=== PATIENT | female | born 2000 | race Caucasian/White ===

== ENCOUNTER 2022-06-22 14:25 | Observation (INO) | payer OTHER, SELFPAY ==
--- NOTE | 2022-06-19 14:07 | EKG12_ITS ---
Test Reason : PREOP Blood Pressure : / mmHG Vent. Rate : 088 BPM Atrial Rate : 088 BPM P-R Int : 140 ms QRS Dur : 078 ms QT Int : 372 ms P-R-T Axes : 028 046 028 degrees QTc Int : 450 ms Normal sinus rhythm Normal ECG Confirmed by IVETT DAY, REBECA ([id number]), editorial manager XIOMARA CNAO ([id number]) on 06/20/2022 1:16:45 PM Referred By: Jomar Duff Confirmed By:REBECA ROOT MD
[2022-06-19 15:40] LABS: Hematocrit 41.7 % (37-47); Hemoglobin 14.3 g/dL (12.0-15.0); Mean Corp Hgb Conc 34.3 g/dL (32-36); Mean Corpuscular Volume 87.4 fL (81-99); Mean Platelet Vol. 10.6 fl (6.2-12.0); Platelet Count 357 K/mm3 (150-450); RBC Distribution Width CV 12.6 % (11.6-14.6); RBC Distribution Width SD 40.1 fl (35.1-43.9); Red Blood Count 4.77 M/mm3 (4.2-5.4); White Blood Count 8.1 K/mm3 (4.4-11.0)
[2022-06-19 16:24] LABS: Anion Gap 9 (5-15); BUN 12 mg/dL (7-18); BUN/Creat Ratio 16.6 RATIO (10-20); Calcium,Total 9.3 mg/dL (8.5-10.1); Chloride 106 mmol/L (98-107); Creatinine, Serum 0.72 mg/dL (0.55-1.02); EST Glomerular Filtration Rate 109 mL/min (>60); Est Glom Filt Rate - Afr Amer 132 mL/min (>60); Glucose 91 mg/dL (74-106); Potassium 4.6 mmol/L (3.5-5.1); Sodium Level 141 mmol/L (136-145)
[2022-06-22] VITALS (11 sets, daily range): BP systolic 114–153; BP diastolic 54–80; PULSE 74–91; RESP 16–24; TEMP 36.3–36.9; O2SAT 94–100; BMI 43.6
--- NOTE | 2022-06-22 | GALL_PTH ---
PATIENT: GLENDY MYRICK LOC: MS3 U#:[id number] AGE/SX: 22/F ROOM: MS317 RE06/22/[address]: Dr. Jomar Duff MD : 2000 BED: 1 DIS: 06/23/2022 SPEC #: [id number] RECD: 06/22/22 14:36 STATUS: SUZAN BENITEZJonna #: [id number] SOUMYA: 06/22/22 00:[address]: Jomar Duff DEPT: SURGICAL PATHOLOGY RECD BY: Sukhwinder Nathan ENTERED: 06/23/22 10:58 SP TYPE: BRIANA THAPA DR: Marcia Perry, LOU Tissues: Gallbladder, NOS Procedures: Surgery Specimen Level III HEADER OPERATION: Laparoscopic cholecystectomy with IOC PRE-OP DIAGNOSIS: Cholelithiasis with chronic cholecystitis TISSUE SUBMITTED: Gallbladder MICROSCOPIC DIAGNOSIS Gallbladder, cholecystectomy: Chronic cholecystitis and cholelithiasis. SJ:phani 06/26/2022 MICROSCOPIC DESCRIPTION Slides are reviewed. GROSS DESCRIPTION Received is one container labeled with the patient's name and designated gallbladder. The specimen consists of a gallbladder measuring 6 x 3 x 3 cm. The external surface is smooth and glistening. Focally, it is granular, hemorrhagic and contains cautery artifact. The lumen of the gallbladder contains yellow-green mucoid bile and multiple chalky, yellow calculi ranging in size from 0.2 to 0.6 cm in greatest dimension. The mucosa is bile-stained and without any mass lesions. The gallbladder wall averages 0.2 cm in thickness and is free of mass lesions. Application Technical Designer sections of the gallbladder and the cystic duct at margin of resection are submitted in one cassette. / AM:phani 06/23/2022 TC:3 CPT: 35809
--- NOTE | 2022-06-22 10:47 | HP.PCM_ITS ---
History and Physical Date of Admission: 06/22/22 Visit Reasons:?GALLBLADDER Chief Complaint: gallbladder Is patient in pain?: Yes Allergies No Known Allergies Allergy (Verified 06/02/22 13:09) Medications ondansetron 4 mg disintegrating tablet 4 mg PO Q8H PRN PRN Nausea #10 tabs 05/29/15 [Rx Confirmed 06/02/22] cholecalciferol (vitamin D3) 125 mcg (5,000 unit) capsule 125 mcg PO DAILY 06/02/22 [History Confirmed 06/02/22] drospirenone 3 mg-ethinyl estradiol 0.02 mg tablet 1 tab PO DAILY 06/02/22 [History Confirmed 06/02/22] fluoxetine 10 mg capsule 10 mg PO DAILY 06/02/22 [History Confirmed 06/02/22] omeprazole 20 mg capsule,delayed release 20 mg PO DAILY 06/02/22 [History Confirmed 06/02/22] PFSH Family History?(Updated 06/02/22 @ 13:07 by Gladys Do) Mother Diabetes Thyroid disorderFather Diabetes Skin cancerGrandmother Heart disease Kidney disease Colon cancerGrandfather Heart disease Social History?(Updated 06/02/22 @ 13:07 by Gladys Do) Smoking Status:? Never smoker alcohol intake:? never substance use type:? does not use HPI HPI HPI: 22-year-old female.She is referred by Marcia Perry CNP for surgical consultation regarding nausea and vomiting.? At the [facility] she had a gallbladder ultrasound on May 09, 2022 showing small mobile stones within the gallbladder.? The common bile duct was felt to be normal.? She had a hepatobiliary scan performed on May 12, 2022.? There was nonvisualization of the gallbladder for up to 2 hours. Her symptoms over the past 2 years has been problems with right upper quadrant pain radiating to her right flank nausea vomiting occasionally diarrhea occasionally constipation.? She denies bright red blood per rectum or melena.? She denies any previous abdominal surgical procedures.? Today she is not currently in pain.? She states that fatty foods will aggravate her condition. ROS General General: No weight change, appetite, fatigue, colon cancer, breast cancer or weakness HEENT HEENT: No difficulty swallowing, eye injury, eye surgery, swollen glands or hoarseness Endo Endocrine: No thyroid disease, diabetes mellitus, thyroid cancer, Hair loss, heat intolerance or cold intolerance Skin Skin: No rash or changing moles Breast Breast: No left breast lump, right breast lump, nipple discharge, breast pain, abnormal mammogram, abnormal US or breast enlargement Musc Musculoskeletal: Yes back problems; No arthritis, rheumatoid arthritis, gout or joint pain Cardio Cardiovascular: No murmur, pacemaker, heart disease, atrial fibrillation, high blood pressure, heart attack, heart stent, palpitations, shortness of breat with exertion or chest pain Psych Psychiatric: Yes depression and anxiety; No hearing voices Resp Respiratory: Yes shortness of breath, No sleep apnea, No cough, No COPD, No asthma, No emphysema and No wheezing Gastro Gastrointestinal: Yes abdominal pain, Yes nausea or vomiting, Yes diarrhea, Yes constipation, No blood in stool, Yes acid reflux, No hemorrhoids, No ulcers, Yes gallbladder problem and No black,tarry stools Porfirio Hematologic: No blood thinners, No blood disorders, No bleeding, No anemia and No blood clots Neuro Neurologic: No system reviewed and no additional complaints, except as documented, No as per HPI, No abnormal gait, No abnormal hearing, No abnormal movements, No abnormal speech, No behavioral changes, No burning sensations, No confusion, No convulsions, No disequilibrium, No dizziness, No localized weakness, No frequent falls, No headache(s), No lack of coordination, No loss of vision, No memory loss, No numbness, No other visual disturbances, No radicular pain, No restless legs, No sensory deficit, No syncope, No tingling, No tremor(s), No weakness and No other Exam Const General: cooperative, comfortable and no acute distress Nutritional Appearance: obese morbidly obese Orientation: alert, awake and oriented x3 [facility] Head: normal to inspection Eyes General: appearance normal, both eyes and all related structures Neck Neck: normal visual inspection Chest Chest palpation & inspection: normal inspection of the chest Resp Effort & Inspection: normal respiratory effort Auscultation: clear to auscultation bilaterally Cardio Rate: regular rate Rhythm: regular rhythm GI Palpation: soft and no hepatosplenomegaly Auscultation: normal bowel sounds Skin General: no rashes or lesions noted Neuro General: patient alert, patient awake and patient oriented x3 Psych Appearance: grossly normal Assessment and Plan Assessment and Plan (1) Cholelithiasis with chronic cholecystitis: ?Status:?Chronic ?Plan: Findings are consistent with biliary colic, chronic cholecystitis cholelithiasis.? I have cautioned her that possibly all of her symptoms may not rose but I think that there is very solid evidence that she has malfunctioning gallbladder.? We discussed a laparoscopic approach we discussed potential conversion to open.? She concurs and is aware. I recommended the patient a laparoscopic cholecystectomy with selective cholangiography and I discussed the technique, benefit, risk, alternatives.? She has had an opportunity to ask and have questions answered.? We will schedule procedure at her discretion. I appreciate the opportunity of assisting with her surgical care. Copy: Marcia Perry, LEW Duff M.D., F.A.C.S. I have examined the patient and the H&P has been reviewed. There are no clinical changes since date of exam. Jomar Duff M.D., F.A.C.S.
--- NOTE | 2022-06-22 10:47 | EX.PCM.DISCH ---
Discharge Instructions Procedure General Surgery Diet Discharge Diet: Light diet - advance as tolerated (if you have questions about your diet instructions, please talk to you doctor.) Activity Discharge Activity: May Not Drive (for 3-5 days or while taking narcotic pain medicine.) May shower in (days): 1 (May shower on Sunday if your dressings are clean and dry. If ongoing drainage then delay showers until the dressings are dry) Lifting Restrictions: 10 pounds Dressing / Incision Call your doctor if your incision/area has: Continuous Slow Oozing, Sudden Increased Bleeding, Increased Pain/ Swelling, Increased Redness and Foul Smelling Discharge Call your doctor if you observe: Fever of 101 or Higher Suture Line Care: Avoid Pulling/Pushing and Avoid Pinching/Bending Additional Dressing/Incision Instructions:: Change or remove dressing in 4 days. Leave steri-strips in place for 1 week. Follow Up Care Please Follow Up With: Jomar Duff MD When: Call [phone] to make an appointment to be seen in about 10 days. Test Results: Test results from this visit will be discussed in further detail at your follow-up appointment, if applicable. Discharge Plan Admission Admit Date/Time: 06/22/22 14:25 Primary Reason for Your Visit: Chronic cholecystitis cholelithiasis Attending Provider: Jomar Duff Primary Care Provider: Marcia Perry NP Discharge Orders/Prescriptions Prescriptions: New hydrocodone-acetaminophen 5-325 mg tablet 1 tab PO Q6H PRN (Reason: pain) 2 Days Qty: 8 0RF Continued omeprazole 20 mg capsule,delayed release(DR/EC) 20 mg PO DAILY fluoxetine 10 mg capsule 10 mg PO DAILY cholecalciferol (vitamin D3) 125 mcg (5,000 unit) capsule 125 mcg PO DAILY drospirenone-ethinyl estradiol 3-0.02 mg tablet 1 tab PO DAILY loratadine [Claritin] 10 mg Tablet 10 mg PO DAILY Referrals / Follow Up: Marcia Perry NP, DECORATING AND ASSEMBLY SUPERVISOR-C [Primary Care Provider] -
[2022-06-22 11:02] LABS: Internal QC Validated? YES +Cl - CLEAR BKGD; Pregnancy, Urine Negative Negative
[2022-06-22] MEDS: Lactated Ringers 1,000 ML 15 ML IV ×2 (11:21→13:30)
--- NOTE | 2022-06-22 11:30 | RAD_ITS ---
STUDY: INTRAOPERATIVE cholangiogram. REASON FOR EXAM: Female, 22 years old. Laparoscopic cholecystectomy. FLUOROSCOPY TIME (if supplied): ( 126 seconds ) minutes/seconds. A cine loop of 73 images was submitted. TECHNIQUE: Intraoperative cholangiogram was performed by the surgeon. Imaging was provided. COMPARISON: None. FINDINGS: There is extravasation of contrast at the operative site. The common bile duct is not dilated. There is free flow of contrast into the duodenum. RAD/Cholangiogram/ O R,Initial IMPRESSION: Normal appearance of the common bile duct. Electronically Signed: Dennis Bansal MD at 12:36 EDT ,
[2022-06-22] MEDS: Cefazolin 2 GM in 0.9% Normal Saline 100 ML IV (12:14)
--- NOTE | 2022-06-22 14:19 | PCM.OPRPT ---
Report of Operation Date of Procedure: 06/22/22 Pre-Operative Diagnosis: Chronic cholecystitis cholelithiasis Post-Operative Diagnosis: Chronic cholecystitis cholelithiasis hydrops of the gallbladder and impaction of the cystic duct Surgery/Procedure Performed:: Laparoscopic cholecystectomy with cholangiograms Description of Surgical Findings:: Timeout and informed consent was obtained. 22-year-old female was taken to the operating placed on the table underwent general endotracheal intubation esthesia Ancef 2 g were given intravenously the abdomen sterilely prepped and draped 0.25% Marcaine was used as a local anesthetic throughout the procedure a total of 30 cc was used. Skin sites were. Excised. A vertical infraumbilical incision was created holding sutures of 0 Vicryl placed varies needle inserted saline drop test performed the abdomen was insufflated with CO2 to a pressure of 12 mmHg pressure no evidence of any trocar injuries after a 10 mm trocar inserted and 10 mm laparoscope inserted. Under direct visualization 5 mm trocar inserted in the epigastric 1 in the mid abdomen and 1 in the right upper quadrant. Inspection revealed significant diffuse fatty change of the liver with a very yellowish color. The gallbladder was grasped with the infundibular area was tediously dissected free. It is of note that there was inflammation completely surrounding the cystic duct and this dissection was extraordinarily difficult in light of the difficulty in helping the liver remain elevated due to the fatty change dissected further up on the infundibular area tediously is used Hem-o-riya clips for hemostasis finally dissected around the infundibular area that worked my way more distally was able to identify the cystic artery and cystic duct. Having done that I secured the cystic artery with Hem-o-riya clips prior to transecting it. Placed a Hemoclip on the cystic duct and an incision in the cystic duct and milked the cystic duct backwards and got debris and stone material did this multiple times. Then used a cholangiogram catheter through an Angiocath and irrigated the cystic duct backwards. It is of note that there was no green bile identified throughout the procedure. Continue to milk it back until I could position the cholangiogram catheter in the cystic duct secured that with a Hem-o-riya clip and then fluoroscopically obtain cholangiograms. There was leakage back from the Hem-o-riya clip but I was able to see flow distally initially not into the small bowel but then into the small bowel. Patient received a milligram of glucagon. Did further imaging and felt that I was able to identify the proper hepatic duct and the bifurcation of the intrahepatic ducts as well as flow into the duodenum. Cholangiogram catheter was removed 3 Hem-o-riya clips were placed on the cystic duct stump prior to transecting it. The cystic duct stump noted to be edematous. Then dissected free the gallbladder from the liver bed complete hemostasis was intact. The gallbladder retrieval bag the right upper quadrant was irrigated free and aspirated free of excess fluid. Just because of the technical challenges of the operation and the concern that she might of developed some degree through the common duct and pancreatitis I elected to place a 15 round JOEL drain and hold the patient in the hospital overnight. JOEL drain was shorten length length to the subhepatic space and exited through the right upper quadrant secured there with a 3-0 nylon. The gallbladder is now exited through the umbilical port site. The remaining trochars were allowed to deflate under an antiviral valve. The abdomen deflate. The fascia at the umbilicus approximated with 2-0 Vicryl [id number] suture. Skin edges proximal interrupted 4 Monocryl subdermal stitches. Steri-Strips Telfa OpSite dressings applied. Sponge and instrument and needle counts were reported to the surgeon to be correct. Specimen gallbladder. Drains 15 round JOEL. Blood loss minimal. The patient was taken to the recovery room in satisfactory addition without apparent complication. Jomar Duff M.D., F.A.C.S. Surgeon: Jomar Duff Type of Anesthesia: General and Local Anesthesiologist: Pablo Galarza
[2022-06-22] MEDS: Bupivacaine 0.25% 30 ML Vial (14:20)
[2022-06-22] MEDS: Ondansetron 4 MG/2 ML Vial IV (17:27)
[2022-06-22] MEDS: HYDROcodone Bitartrate/Apap 5/325 Tablet PO (18:06)
[2022-06-23] MEDS: HYDROcodone Bitartrate/Apap 5/325 Tablet PO ×2 (02:52→09:19)
[2022-06-23 04:15] VITALS: BP 110/64; BP 118/70; PULSE 80; RESP 16; TEMP 36.7; O2SAT 96
--- NOTE | 2022-06-23 04:17 | NURSING ---
Pt OOB at 1999 to ambulate in hallway. Tolerated well. Unable to void at this time. Pt then assisted to chair and chewing gum was provided. At 2229 pt up to ambulate in hallway for second time. Tolerated well. Pt able to void following ambulation - missed hat. Pt assisted back to bed. SCD's in place. Call light within reach.
[2022-06-23 05:29] VITALS: BP 110/64; PULSE 80; RESP 16; TEMP 36.7; O2SAT 96
--- NOTE | 2022-06-23 06:35 | PCM.PN.SRG ---
Subjective Subjective Patient mildly to moderately sore. She has been up and ambulating and has been out of bed to a chair. No nausea. Objective Data Objective Data Vital Signs: Vital Signs Temp Pulse Resp BP Pulse Ox O2 Del Method 98.0 F 80 16 110/64 96 Room Air 06/23/22 05:29 06/23/22 05:29 06/23/22 05:29 06/23/22 05:29 06/23/22 05:29 06/23/22 05:29 Oxygen Delivery Method Room Air Weight: 262 lb 5.601 oz Body Mass Index (BMI) 43.6 Intake & Output: Intake and Output for Last 24 Hours 06/21/22 06/22/22 06/23/22 23:59 23:59 23:59 Intake Total 1410 / 1410 Output Total Balance 1400 / 1400 - Lab / Micro Data Result Diagrams: 06/19/22 14:17 06/19/22 14:17 Labs: Laboratory Results - last 24 hr 06/22/22 10:51: Urine Test Negative Physical Exam GI GI Narrative: JOEL drain minimal amount of serous material. No evidence of any bilious material. Slight drainage around the tube. Abdomen otherwise soft. Decreased bowel sounds. Assessment & Plan Assessment/Plan (1) Cholelithiasis with chronic cholecystitis: PLAN: I remove the JOEL drain. Applied clean dry dressings. Laboratories pending. If unremarkable then plan discharge today. With a diagram I have explained to the patient the finding of the impacted stone and debris within the cystic duct. I discussed the potential of choledocholithiasis though have no evidence of it at this time. Jomar Duff M.D., F.A.C.S.
[2022-06-23 07:44] LABS: AST(SGOT) 69 U/L (15-37); Alanine Aminotransfer ALT/SGPT 90 U/L (13-56); Alkaline Phosphatase 63 U/L (45-117); Amylase 38 U/L (25-115); Bilirubin, Direct 0.16 mg/dL (0.00-0.30); Globulin 3.9 g/dL (2.2-4.2); Lipase 85 U/L (73-393); Protein, Total 6.9 g/dL (6.4-8.2)
[2022-06-23 08:32] VITALS: BP 123/66; PULSE 75; RESP 16; TEMP 36.2; O2SAT 98
[2022-06-23] MEDS: FLUoxetine 10 MG Capsule PO (09:19)
[2022-06-23] MEDS: Loratadine 10 MG Tablet PO (09:19)
[2022-06-23] MEDS: Pantoprazole Sodium 20 MG Tablet PO (09:19)
[2022-06-23 10:00] VITALS: RESP 18
[2022-06-23 12:50] VITALS: BP 106/75; PULSE 70; RESP 18; TEMP 36.8; O2SAT 97
== END 2022-06-23 12:47 | disposition home or self-care (01) ==
LOC: SDC 14:53 → MS3 14:53
PROVIDERS: Admitting Provider Surgery; PCP Nurse Practitioner Family; Referring Provider Surgery; Visit Provider Surgery
PROC: (CPT 47610; principal; 2022-06-22 12:15)
DX: K80.10 Calculus of gallbladder with chronic cholecystitis without obstruction (principal); K82.1 Hydrops of gallbladder; K21.9 Gastro-esophageal reflux disease without esophagitis; Z79.899 Other long term (current) drug therapy
CPT/HCPCS: 47563; 00790; 36415; 74300; 76000; 80048; 80076; 81025; 82150; 83690; 85027; 88304; 93005; 96374; 99218; J7120; G0378; J1610; J2405

== ENCOUNTER → 2022-08-08 | Outpatient (CLI) | payer OTHER, SELFPAY ==
[2022-08-08 14:40] LABS: Hematocrit 42.4 % (37-47); Hemoglobin 14.1 g/dL (12.0-15.0); Mean Corp Hgb Conc 33.3 g/dL (32-36); Mean Corpuscular Hgb 29.3 pg (27.0-32.0); Mean Corpuscular Volume 88.1 fL (81-99); Platelet Count 366 K/mm3 (150-450); RBC Distribution Width CV 12.5 % (11.6-14.6); RBC Distribution Width SD 40.2 fl (35.1-43.9); Red Blood Count 4.81 M/mm3 (4.2-5.4); White Blood Count 8.3 K/mm3 (4.4-11.0)
[2022-08-08 14:52] LABS: ALB/GLOB Ratio 0.7 RATIO (0.9-2.4); AST(SGOT) 24 U/L (15-37); Alanine Aminotransfer ALT/SGPT 31 U/L (13-56); Albumin, Serum 3.2 g/dL (3.2-5.0); Alkaline Phosphatase 85 U/L (45-117); Anion Gap 7 (5-15); BUN 13 mg/dL (7-18); Calcium,Total 9.3 mg/dL (8.5-10.1); Chloride 105 mmol/L (98-107); Creatinine, Serum 0.82 mg/dL (0.55-1.02); EST Glomerular Filtration Rate 95 mL/min (>60); Est Glom Filt Rate - Afr Amer 115 mL/min (>60); Globulin 4.6 g/dL (2.2-4.2); Glucose 134 mg/dL (74-106); Potassium 4.2 mmol/L (3.5-5.1); Protein, Total 7.8 g/dL (6.4-8.2); Sodium Level 139 mmol/L (136-145)
== END | disposition home or self-care (01) ==
LOC: PAVLAB 14:20
PROVIDERS: PCP Nurse Practitioner Family; Referring Provider Physician Assistant; Visit Provider Physician Assistant
DX: R10.11 Right upper quadrant pain (principal)
CPT/HCPCS: 36415; 80053; 85027

== ENCOUNTER 2023-07-16 06:20 | Day surgery (SDC) | payer OTHER, SELFPAY ==
--- NOTE | 2023-07-16 06:27 | HP.PCM_ITS ---
History and Physical Date of Admission: 07/16/23 23 F who presents to the office today for initial consult. PCP OV 5.5.23 with RUQ abdominal discomfort without N/V/D; reports constipation. s/p cholecystectomy 6months previously with ongoing symptoms as prior to this. Cholestyramine started following cholecystectomy.?Biochemical?CBC, CMP, lipase without pertinent abnormality? AST H36-ALT 30- AP 85?US RUQ 5.8.23?hepatic fatty infiltration. Remaining exam without acute/chronic finding.? ? ROS Const Constitutional: Positive for fatigue ENT ENT: No difficulty swallowing Gastro GI: Positive for abdominal pain, bloating, constipation, diarrhea, heartburn, Blood in stool and nausea/dyspepsia; No belching, change in bowel habits, change in stool character, coffee ground emesis, cramping, difficulty swallowing, feeling full early, excessive flatus, incontinent of stools, Vomiting blood/hematemesis, loose stools, Black,tarry stools, pain with swallowing, vomiting or other Musc Musculoskeletal: Positive for back pain, muscle cramps, muscle weakness and restless legs; No joint pain Skin Skin: No yellowing of the eye or itchy eyes Neuro Neurology: Positive for restless legs Psych Psychiatric: Positive for anxiety and Positive for depression Endo Endocrine: Positive for fatigue Aller/Imm Allergy/Immunologic: No itchy eyes Porfirio/Lymp Hematologic/Lymphatic: No easy bleeding or easy bruising Exam Const General: cooperative and comfortable Nutritional Appearance: average body habitus and well nourished [facility] Head: normal to inspection Ears: hearing grossly normal bilaterally Nose: external nose normal Face and sinus: normal facial exam Mouth: oral mucosae normal Throat: posterior oropharynx normal Eyes General: appearance normal, both eyes and all related structures Neck Neck: normal visual inspection Chest Chest palpation & inspection: normal inspection of the chest and normal palpation of entire chest wall Resp Effort & Inspection: normal respiratory effort Auscultation: Bilateral: Clear to Auscultation Cardio Palpation: normal PMI Rate: regular rate Rhythm: regular rhythm GI Inspection: normal to inspection Auscultation: normal bowel sounds Percussion: normal to percussion Palpation: no hepatosplenomegaly Skin General: no rashes or lesions noted Neuro General: patient alert Extrem General: normal to inspection Psych Affect: normal affect Quality Reporting Tobacco Screening ([facility] [address]) Smoking Status: Never smoker Assessment and Plan Assessment and Plan (1) RUQ pain: Status: Acute Plan: The differential diagnosis for abdominal pain does include gastroparesis, gastritis, H. pylori associated gastritis, celiac disease, functional abdominal pain. She should undergo biochemical testing, gastric emptying study, upper endoscopy to evaluate upper GI tract. She is also having some intermittent stools that is possibly associated with bile acid induced diarrhea or accelerated gastrocolic reflex. We will get stool test to rule out infectious etiology and IBD SGI to look for antibodies for inflammatory bowel disease. Orders: Orders Lipase 06/04/23 R10.11 - Right upper quadrant pain Amylase 06/04/23 R10.11 - Right upper quadrant pain Fecal Fat, Qualitative 06/04/23 R10.11 - Right upper quadrant pain Pancreatic Elastase, Fecal 06/04/23 R10.11 - Right upper quadrant pain [facility] Comprehensive Panel 06/04/23 R10.11 - Right upper quadrant pain Comprehensive Metabolic Profil 06/04/23 R10.11 - Right upper quadrant pain Stool Lactoferrin/WBC 06/04/23 K58.9 - Irritable bowel syndrome without diarrhea, R10.11 - Right upper quadrant pain Immunoglobulins G/A/M/E 06/04/23 R10.11 - Right upper quadrant pain Hemoglobin A1c 06/04/23 R10.11 - Right upper quadrant pain Thyroid Stim Hormone (TSH) 06/04/23 R10.11 - Right upper quadrant pain Vitamin B12 06/04/23 R10.11 - Right upper quadrant pain Folates, (Folic Acid) 06/04/23 R10.11 - Right upper quadrant pain ENTERIC PATHOGEN PANEL STOOL 06/04/23 K58.9 - Irritable bowel syndrome without diarrhea, R10.11 - Right upper quadrant pain CDIFF (PCR) 06/04/23 R10.11 - Right upper quadrant pain OVA+PARA w/Giardia EIA [id number] 06/04/23 R10.11 - Right upper quadrant pain Stool Occult Blood iFOB 06/04/23 R10.11 - Right upper quadrant pain Calprotectin, Stool 06/04/23 R10.11 - Right upper quadrant pain Miscellaneous Lab Procedure 06/04/23 R10.11 - Right upper quadrant pain I have examined the patient and the H&P has been reviewed. There are no clinical changes since date of exam.
[2023-07-16 06:52] VITALS: BP 132/80; RESP 18; TEMP 36.1; O2SAT 100; BMI 45.7
[2023-07-16 07:06] LABS: Internal QC Validated? YES +Cl - CLEAR BKGD; Pregnancy, Urine Negative Negative
[2023-07-16] MEDS: Lactated Ringers 1,000 ML 15 ML IV (07:13)
--- NOTE | 2023-07-16 07:30 | EGD_PTH ---
PATIENT: GLENDY MYRICK LOC: EN U#:[id number] AGE/SX: 23/ ROOM: RE07/16/[address]: Dr. Sky Villavicencio DO : 2000 BED: DIS: 07/16/2023 SPEC #: [id number] RECD: 07/16/23 13:20 STATUS: SUZAN ANDERS #: [id number] SOUMYA: 07/16/23 07:[address]: Sky Villavicencio DEPT: SURGICAL PATHOLOGY RECD BY: Jennifer Best ENTERED: 07/16/23 13:21 SP TYPE: EGD BIOPSY OTHR DR: Marcia Perry, LOU Tissues: A - Duodenum, NOS B - Gastric mucous membrane C - Esophageal mucous membrane Procedures: Special Stain Group II Surgery Specimen Level IV Alcian Blue/PAS (control) HEADER OPERATION: EGD with biopsies PRE-OP DIAGNOSIS: RUQ pain TISSUE SUBMITTED: A - Duodenum biopsy, B - Gastric body biopsy, C - Distal esophagus MICROSCOPIC DIAGNOSIS A. Duodenum, biopsy: No pathologic change. B. Gastric body, biopsy: Mild chronic gastritis. See comment. C. Distal esophagus, biopsy: Gastroesophageal junctional mucosa with mild chronic inflammation. No evidence of goblet cell metaplasia. See comment. AM:phani 07/17/2023 COMMENT B. The results of immunohistochemistry for Helicobacter pylori will be reported separately ([id number]). C. Alcian blue/PAS stain with matched control supports the above diagnosis. MICROSCOPIC DESCRIPTION Slides are reviewed. GROSS DESCRIPTION A - Received in fixative is one container labeled with the patient's name and designated duodenum biopsy. The specimen consists of multiple irregular fragments of light currie soft tissue that in aggregate measure 0.5 x 0.5 x 0.1 cm. The specimen is totally submitted in one cassette. B - Received in fixative is one container labeled with the patient's name and designated gastric body biopsy. The specimen consists of multiple irregular fragments of light currie soft tissue that in aggregate measure 1.0 x 0.2 x 0.1 cm. The specimen is totally submitted in one cassette. C - Received in fixative is one container labeled with the patient's name and designated distal esophagus. The specimen consists of multiple irregular fragments of light currie soft tissue that in aggregate measure 1.0 x 0.5 x 0.1 cm. The specimen is totally submitted in one cassette. / AM:phani 07/16/2023 TC:3 CPT: 75841 x3, 14880
--- NOTE | 2023-07-16 07:30 | IMM_PTH ---
PATIENT: GLENDY MYRICK LOC: EN U#:[id number] AGE/SX: 23/F ROOM: RE07/16/[address]: Dr. Sky Villavicencio DO : 2000 BED: DIS: 07/16/2023 SPEC #: [id number] RECD: 07/16/23 14:27 STATUS: SUZAN REJonna #: [id number] SOUMYA: 07/16/23 07:[address]: Sky Villavicencio DEPT: IMMUNOHISTOCHEMISTRY RECD BY: Tracy Johnston ENTERED: 07/16/23 14:27 SP TYPE: IMMUNO OTHR DR: LOU Burt Tissues: B - Stomach, NOS Procedures: H Pylori (initial) PHYSICIAN & INSTITUTION [place] [id number] SPECIMEN INFORMATION: Tissue Source: B - Gastric body Clinical Info: RUQ pain Specimen Number: [id number] CPT code: 41084 METHODOLOGY: Deparaffinized sections of prefer/formalin-fixed tissue or PAP/DQ stained slides are incubated with monoclonal/polyclonal antibodies/oligonucleotide probes. Localization is made via biotin free immunoperoxidase method. Appropriate controls are performed and reacted as expected. Results on target cell population are indicated in the following table: RESULTS: ANTIBODY / CLONE RESULT Block B H Pylori (polyclonal) negative These tests were developed and their performance characteristics determined by [facility]. They may not have been cleared or approved by the U.S. Food and Drug Administration. The FDA has determined that such clearance or approval is not necessary. The above immunohistochemical/dualISH markers are ordered and reviewed by the Pathologist. INTERPRETATION: B. Gastric body, biopsy: Negative for Helicobacter pylori organisms. AM:phani 07/17/2023
[2023-07-16 08:03] VITALS: BP 124/85; BP 132/80; PULSE 95; RESP 16; TEMP 36.5; O2SAT 94
--- NOTE | 2023-07-16 08:04 | OP.CCLET_ITS ---
07/16/2023 Noe Burt Re : Upper GI endoscopy procedure for Terrie Rubio Dear Vicky This procedure was performed on Sunday, July 16, 2023. My impressions and recommendations are as follows: Impressions : - LA Grade B erosive esophagitis with no bleeding. Biopsied. - Hiatal hernia. - Bile gastritis. Biopsied. - Erythematous duodenopathy. Biopsied. Recommendations : - Discharge patient to home. - Resume previous diet. - Continue present medications. - Use Prilosec (omeprazole) 20 mg PO BID for 12 weeks. - Use sucralfate tablets 1 gram PO BID for 12 weeks. - HIDA scan to look for duodenal gastric reflux - Gastric emptying study for delayed gastric emptying that could be contributing to bile acid reflux My findings are described in the full procedure note, which is enclosed. If I can be of further assistance, please feel free to contact me at . Sincerely, Sky Villavicencio, 07/16/2023 8:03:52 AM This report has been signed electronically.
--- NOTE | 2023-07-16 08:04 | OP.EGD_ITS ---
Patient Name: Terrie Rubio Procedure Date: 07/16/2023 7:30 AM Date of : 2000 Age: 23 Procedure: Upper GI endoscopy Indications: Epigastric abdominal pain, Functional Dyspepsia, Heartburn, Failure to respond to medical treatment Providers: Sky Villavicencio DO Medicines: Monitored Anesthesia Care Patient Profile: This is a 23 year old female. Refer to note in patient chart for documentation of history and physical. Patient has symptoms of chronic abdominal distention, acute epigastric abdominal pain, chronic dyspepsia and chronic heartburn. Complications: No immediate complications. Procedure: Pre-Anesthesia Assessment: - Prior to the procedure, a History and Physical was performed, and patient medications and allergies were reviewed. The patient is competent. The risks and benefits of the procedure and the sedation options and risks were discussed with the patient. All questions were answered and informed consent was obtained. Patient identification and proposed procedure were verified by the physician. Mental Status Examination: alert and oriented. Airway Examination: normal oropharyngeal airway and neck mobility. Respiratory Examination: clear to auscultation. CV Examination: normal. Prophylactic Antibiotics: The patient does not require prophylactic antibiotics. Prior Anticoagulants: The patient has taken no anticoagulant or antiplatelet agents. ASA Grade Assessment: II - A patient with mild systemic disease. After reviewing the risks and benefits, the patient was deemed in satisfactory condition to undergo the procedure. The anesthesia plan was to use monitored anesthesia care (MAC). Immediately prior to administration of medications, the patient was re-assessed for adequacy to receive sedatives. The heart rate, respiratory rate, oxygen saturations, blood pressure, adequacy of pulmonary ventilation, and response to care were monitored throughout the procedure. The physical status of the patient was re-assessed after the procedure. After obtaining informed consent, the endoscope was passed under direct vision. Throughout the procedure, the patient's blood pressure, pulse, and oxygen saturations were monitored continuously. The Endoscope was introduced through the mouth, and advanced to the second part of duodenum. The upper GI endoscopy was accomplished without difficulty. The patient tolerated the procedure well. Scope In: 7:38:33 AM Scope Out: 7:54:05 AM Total Procedure Duration Time 0 hours 15 minutes 32 seconds Findings: LA Grade B (one or more mucosal breaks greater than 5 mm, not extending between the tops of two mucosal folds) esophagitis with no bleeding was found 36 to 39 cm from the incisors. Biopsies were taken with a cold forceps for histology. Verification of patient identification for the specimen was done. Estimated blood loss was minimal. A hiatal hernia was present. Segmental mild inflammation characterized by erosions and erythema was found in the gastric body. Biopsies were taken with a cold forceps for histology. Verification of patient identification for the specimen was done. Biopsies were taken with a cold forceps for Helicobacter pylori testing. Verification of patient identification for the specimen was done. Estimated blood loss was minimal. Patchy mildly erythematous mucosa without active bleeding and with no stigmata of bleeding was found in the duodenal bulb, in the first portion of the duodenum and in the second portion of the duodenum. Biopsies were taken with a cold forceps for histology. Verification of patient identification for the specimen was done. Estimated blood loss was minimal. Impression: - LA Grade B erosive esophagitis with no bleeding. Biopsied. - Hiatal hernia. - Bile gastritis. Biopsied. - Erythematous duodenopathy. Biopsied. Recommendation: - Discharge patient to home. - Resume previous diet. - Continue present medications. - Use Prilosec (omeprazole) 20 mg PO BID for 12 weeks. - Use sucralfate tablets 1 gram PO BID for 12 weeks. - HIDA scan to look for duodenal gastric reflux - Gastric emptying study for delayed gastric emptying that could be contributing to bile acid reflux Procedure Code(s): --- Professional --- 11711, Esophagogastroduodenoscopy, flexible, transoral; with biopsy, single or multiple CPT copyright 2021 [employer]. All rights reserved. The codes documented in this report are preliminary and upon real estate director review may be revised to meet current compliance requirements. Sky Villavicencio DO 07/16/2023 8:03:52 AM This report has been signed electronically. Number of Addenda: 0 Note Initiated On: 07/16/2023 7:30 AM
[2023-07-16 08:08] VITALS: BP 109/92; BP 132/80; PULSE 90; RESP 16; O2SAT 92
[2023-07-16 08:10] VITALS: BP 114/88; BP 132/80; PULSE 85; RESP 16; O2SAT 95
[2023-07-16 08:16] VITALS: BP 117/57; BP 132/80; PULSE 83; RESP 16; TEMP 36.6; O2SAT 93
[2023-07-16 08:29] VITALS: BP 132/80
== END 2023-07-16 08:57 | disposition home or self-care (01) ==
LOC: EN 06:21 → AC 06:22
PROVIDERS: Anesthesiology; PCP Nurse Practitioner Family; Referring Provider Nurse Practitioner Family; Visit Provider Internal Medicine Gastroenterology
PROC: 0DJ08ZZ Inspection of Upper Intestinal Tract, Via Natural or Artificial Opening Endoscopic (ICD-10-PCS; CPT 43235; principal; 2023-07-16 07:25)
DX: K21.00 Gastro-esophageal reflux disease with esophagitis, without bleeding (principal); K44.9 Diaphragmatic hernia without obstruction or gangrene; Z90.49 Acquired absence of other specified parts of digestive tract; K58.9 Irritable bowel syndrome, unspecified; K22.10 Ulcer of esophagus without bleeding; K29.50 Unspecified chronic gastritis without bleeding; Z79.899 Other long term (current) drug therapy
CPT/HCPCS: 43239; 81025; 88305; 88313; 88342; J7120; J2405

== ENCOUNTER → 2023-07-24 | Outpatient (CLI) | payer OTHER, SELFPAY ==
--- NOTE | 2023-07-24 12:44 | NM_ITS ---
CLINICAL: 23-year-old female with history of abdominal bloating and gastroesophageal reflux disease. SEMI-SOLID PHASE 99m Tc SULFUR COLLOID GASTRIC EMPTYING STUDY COMPARISON: None available FINDINGS: The patient was administered 1.0 mCi of 99m Tc sulfur colloid mixed with oatmeal and consumed per os. Image acquisitions in the anterior-posterior projections were obtained for 60 minutes. There is prompt visualization of the stomach. There is no gastroesophageal reflux identified. The T ? raw data emptying was calculated to be 29.59 minutes, (Normal: 12-56 minutes). NM/Gastric Emptying Study IMPRESSION: 1. NORMAL 99m Tc sulfur colloid semi-solid phase (oatmeal) gastric emptying imaging examination. A. There is normal and preserved semi-solid phase gastric emptying compared to normal controls. (Vanessa et al, J Nucl Med Tech 38: 186, 2010). Electronically Signed: Noah Younger DO at 22:41 EST ,
== END | disposition home or self-care (01) ==
LOC: NM 12:42
PROVIDERS: PCP Nurse Practitioner Family; Referring Provider Internal Medicine Gastroenterology; Visit Provider Internal Medicine Gastroenterology
DX: K21.9 Gastro-esophageal reflux disease without esophagitis (principal); Z87.19 Personal history of other diseases of the digestive system
CPT/HCPCS: 78264; A9541

== ENCOUNTER 2023-09-11 12:09 | Emergency (ER) | payer OTHER, SELFPAY ==
[2023-09-11 12:10] VITALS: BP 134/88; PULSE 87; RESP 14; TEMP 35.5; O2SAT 98; BMI 45.1
--- NOTE | 2023-09-11 12:43 | EDS_ITS ---
HPI HPI - GI History of Present Illness Chief Complaint: Abd Pain Detail of Chief Complaint: Abdominal pain Informant: patient Narrative Narrative: Patient presents to the emergency department complaint of abdominal pain that started this morning. Patient states that she chronically has some nausea. Initially the pain was intermittent but now more continuous and she describes it as achy and rates it about a 4-5 out of 10 to the right lower quadrant. She has had no diarrhea. She denies blood in her stool or black tarry stool. Her last menstrual period was 1 week ago. She is on an oral contraceptive and does not believe that she is . Patient does not have history of ovarian cysts or kidney stones. She denies urinary symptoms. Patient denies fevers. [facility] Medical History (Updated 09/11/23 @ 14:[address] Arielle Morrell DO) Alcohol use Anxiety Back pain Blackout Chest pain Depression Gastric reflux Non-smoker Shortness of breath on exertion Wears glasses Home Medications cholecalciferol (vitamin D3) 125 mcg (5,000 unit) capsule 125 mcg PO QHS 06/02/22 [History Last Taken Unknown] drospirenone 3 mg-ethinyl estradiol 0.02 mg tablet 1 tab PO QHS 06/02/22 [History Last Taken Unknown] fluoxetine 10 mg capsule 10 mg PO QHS 06/02/22 [History Last Taken 06/22/22 08:30] omeprazole 20 mg capsule,delayed release 20 mg PO QHS 06/02/22 [History Last Taken 06/22/22 08:30] loratadine 10 mg tablet (Claritin) 10 mg PO QHS 06/15/22 [History Last Taken Unknown] omeprazole 20 mg capsule,delayed release 20 mg PO .bid 12 weeks #60 caps 07/16/23 [Rx Last Taken Unknown] sucralfate 1 gram tablet 1 g PO Q6H 12 weeks #336 tabs 07/16/23 [Rx Last Taken Unknown] Allergy/AdvReac Type Severity Reaction Status Date / Time No Known Allergies Allergy Verified 09/11/23 12:10 Family History Mother Diabetes Thyroid disorder Father Diabetes Skin cancer Grandmother Heart disease Kidney disease Colon cancer Grandfather Heart disease Surgical History History of cholecystectomy History of tonsillectomy and adenoidectomy Social History Smoking Status: Never smoker alcohol intake: never substance use type: does not use ROS ROS ED Review of Systems ROS Unobtainable: other Constitutional Constitutional ED: Reports lethargy; Denies chills, fever(s), sweats or weight loss Eyes Eyes: Denies blurry vision, change in vision or diplopia ENT ENT ED: Denies rhinorrhea or sore throat Cardiovascular Cardiovascular: Denies chest pain, orthopnea or racing heartbeat Respiratory/Chest Respiratory/Chest: Denies cough, dyspnea, dyspnea on exertion, orthopnea or sputum Gastrointestinal Gastrointestinal: Reports abdominal pain and nausea; Denies diarrhea or vomiting Genitourinary Genitourinary ED: Denies dysuria, hematuria or urinary frequency Musculoskeletal Musculoskeletal: Denies arthralgias, back pain, myalgias or neck pain Integumentary Denies abscess, Abrasions or rash Neurologic Neurologic: Denies headache(s) or weakness Psychiatric Psychiatric: Denies anxiety, depression or suicidal thoughts Endocrine Endocrinology: Denies polydipsia, polyphagia or polyuria Hematologic/Lymphatic Hematologic/Lymphatic: Denies easy bleeding, easy bruising or lymphadenopathy Allergic/Immunologic Allergic/Immunologic ED: Denies mouth swelling, tongue swelling or urticaria EXAM Physical Exam Const Vital Signs: 09/11/23 12:10 09/11/23 14:57 Temperature 96 F L Temperature Source Temporal Pulse Rate 87 71 Respiratory Rate 14 16 Blood Pressure 134/88 H 124/68 H Blood Pressure Mean 103 86 Pulse Ox 98 98 Oxygen Delivery Method Room Air Positive well nourished and well developed General Appearance ED: well developed and NAD HEENT Reports TM's clear and moist mucous membranes normocephalic and atraumatic; Negative for trauma or tenderness Tympanic Membrane ED: Yes TM's clear Eyes PERRL and EOMs intact bilaterally General Eye ED: Negative for pale conjunctiva or scleral icterus Neck no lymphadenopathy, supple and no JVD General: Negative for tenderness Chest Wall inspection of chest normal and palpation of chest normal Chest: Negative for tenderness Resp normal respiratory effort and clear to auscultation bilaterally Effort and Inspection: Negative for respiratory distress or pain with movement Auscultation: Negative for rhonchi, wheezes or diminished lung sounds Cardio regular rate, regular rhythm, S1 normal heart sound, S2 normal heart sound and no murmurs Peripheral Pulses: pulses 2+ throughout GI normal to inspection, nondistended, normoactive bowel sounds, soft to palpation, non-distended and no masses GI Narrative: Tenderness palpation of the right lower quadrant with some mild guarding. There is no rebound, rigidity, or perineal signs. No mass palpated. Back/Spine no CVA tenderness and no thoracic nor lumbar tenderness Extremity normal to inspection General Extremety ED: Negative for edema General Extremity: Negative for edema Neuro oriented x3, CN's II-XII intact bilaterally, no sensory deficits noted and gait normal Sensorium / Orientation: awake, alert, oriented to person, oriented to place and oriented to time Motor Exam: strength 5/5 throughout and strength abnormal Psych mental status grossly normal Skin no rashes or lesions noted and no wounds MDM MDM MDM Narrative Medical decision making narrative: Patient presents with right lower quadrant abdominal pain and nausea. In the differential would be kidney stone versus UTI versus ovarian cyst versus appendicitis. IV line established. CBC with differential obtained showed a white count 7.3 with hemoglobin 13.8 and platelet count of 388. Chemistries unremarkable. hCG serum was negative. Urinalysis was normal. CT scan of the abdomen pelvis without contrast showed a 3 cm right ovarian cyst otherwise no acute disease process. Normal appendix. Patient advised to follow-up with [facility]. Patient does not want thing for pain. She does not want a thing for nausea. She is advised to return if worsening pain, fever, vomiting, or condition should worsen anyway. Lab Data Attestation: I reviewed the patient's lab results. Labs: Laboratory Results - last 24 hr 09/11/23 09/11/23 12:55 13:50 WBC 7.3 RBC 4.73 Hgb 13.8 Hct 42.0 MCV 88.8 MCH 29.2 MCHC 32.9 RDW Std Deviation 40.3 RDW Coeff of Scott 12.4 Plt Count 388 MPV 10.3 Immature Gran % (Auto) 0.400 Neut % (Auto) 53.8 Lymph % (Auto) 35.0 Brooks % (Auto) 8.4 Eos % (Auto) 1.7 Baso % (Auto) 0.7 Absolute Neuts (auto) 3.9 Absolute Lymphs (auto) 2.54 Nucleated RBC % 0 Sodium 138 Potassium 3.9 Chloride 108 H Carbon Dioxide 24.0 Anion Gap 6 BUN 12 Creatinine 0.80 Estim Creat Clear Calc 146.40 Est GFR (MDRD) Af Amer 115 Est GFR (MDRD) Non-Af 95 BUN/Creatinine Ratio 14.9 Glucose 95 Calcium 9.4 Serum , Qual NEGATIVE Urine Color Yellow Urine Clarity Clear Urine pH 6.0 Ur Specific [place] 1.015 Urine Protein Negative Urine Glucose (UA) Normal Urine Ketones Negative Urine Occult Blood Negative Urine Nitrite Negative Urine Bilirubin Negative Urine Urobilinogen 1 H Ur Leukocyte Esterase Negative Urine RBC 0 SEEN Urine WBC 0 SEEN Ur Squamous Epith Cells 0 SEEN Urine Bacteria 0 SEEN Urine Mucus 0 SEEN Radiography Diagnostic Testing: Clinical Impression(s) from Imaging Studies Abdomen/Pelvis CT 09/11/23 12:43 IMPRESSION: Diffuse fatty infiltration of the liver with no focal areas of fatty sparing. Right ovarian cyst. The patient is status post cholecystectomy cystectomy. Electronically Signed: Dennis Bansal MD at 14:26 EST Reading Location ID and State: [facility] / [place] , Service support , Discharge Plan Triage Chief Complaint: Abd Pain ED Provider: Arielle Morrell Dx/Rx/DC Orders Clinical Impression: Ovarian cyst, Abdominal pain Instructions: ED Abdominal Pain Unkn Cause Fem, ED Ovarian Cyst Prescriptions: No Action omeprazole 20 mg capsule,delayed release(DR/EC) 20 mg PO QHS fluoxetine 10 mg capsule 10 mg PO QHS cholecalciferol (vitamin D3) 125 mcg (5,000 unit) capsule 125 mcg PO QHS drospirenone-ethinyl estradiol 3-0.02 mg tablet 1 tab PO QHS loratadine [Claritin] 10 mg Tablet 10 mg PO QHS sucralfate 1 gram tablet 1 g PO Q6H 84 Days Qty: 336 0RF omeprazole 20 mg capsule,delayed release(DR/EC) 20 mg PO .bid 84 Days Qty: 60 3RF Primary Care Provider: Chetan Reed Referrals: Chetan Reed DO [Primary Care Provider] - Activity Restrictions/Additional Instructions: Follow-up with your [facility] if your pain persists. Disposition Disposition: Home, Self Care Discharge Date/Time: 09/11/23 14:59
--- NOTE | 2023-09-11 12:43 | CT_ITS ---
STUDY: CT ABDOMEN AND PELVIS WITHOUT CONTRAST REASON FOR EXAM: Female, 23 years old. Right-sided abdominal pain. History of prior cholecystectomy. RADIATION DOSAGE (If Supplied By Facility): CTDIvol = ( 22.40 ) mGy, DLP = ( 1248.82 ) mGycm TECHNIQUE: Transaxial images were obtained from the dome of the diaphragm to the symphysis pubis without oral contrast, and without intravenous contrast. Sagittal and coronal images were reconstructed. Individualized dose optimization techniques were used for this CT. COMPARISON: None. FINDINGS: The visualized lung bases are unremarkable. The visualized portions of the heart are within normal limits. There is decreased attenuation of the liver consistent with steatosis. Focal fatty sparing is seen. The patient is status post cholecystectomy. Normal spleen. Normal pancreas. Normal bilateral adrenal glands. Normal right kidney. Normal left kidney. There is a small hiatal hernia. Normal small intestine. There are scattered colonic diverticula consistent with diverticulosis. The appendix is visualized and appears normal. Normal abdominal aorta. Normal inferior vena cava. Normal retroperitoneum. Normal urinary bladder. There is a 3 cm x 2.4 cm right ovarian cyst. Normal abdominal wall. Normal osseous structures. CT/Abdomen/Pelvis without Cont IMPRESSION: Diffuse fatty infiltration of the liver with no focal areas of fatty sparing. Right ovarian cyst. The patient is status post cholecystectomy cystectomy. Electronically Signed: Dennis Bansal MD at 14:26 EST ,
[2023-09-11] MEDS: 0.9% Normal Saline (1000mL) 1,000 ML 125 ML IV (12:54)
[2023-09-11] MEDS: Ondansetron 4 MG/2 ML Vial IV (12:55)
[2023-09-11 13:12] LABS: Absolute Lymphocyte Count 2.54 X10^3/uL (0.83-4.51); Absolute Neutrophil Count 3.9 X10^3/uL (2.0-7.7); Basophil# 0.05 X10^3/uL; Basophil% 0.7 % (0-1); Eosinophil# 0.12 X10^3/uL; Eosinophils% 1.7 % (0-5); Hemoglobin 13.8 g/dL (12.0-15.0); Lymphocyte # 2.54 X10^3/ul (0.83-4.51); Mean Corp Hgb Conc 32.9 g/dL (32-36); Mean Corpuscular Hgb 29.2 pg (27.0-32.0); Mean Corpuscular Volume 88.8 fL (81-99); Mean Platelet Vol. 10.3 fl (6.2-12.0); Monocyte# 0.61 X10^3/uL; Monocyte% 8.4 % (0-10); NRBC Flagged by Analyzer 0 % (0-5); Neutrophil # 3.91 X10^3/uL (2.7-7.7); Neutrophil % 53.8 % (47-70); Platelet Count 388 K/mm3 (150-450); RBC Distribution Width CV 12.4 % (11.6-14.6); RBC Distribution Width SD 40.3 fl (35.1-43.9); Red Blood Count 4.73 M/mm3 (4.2-5.4); White Blood Count 7.3 K/mm3 (4.4-11.0)
[2023-09-11 13:20] LABS: Anion Gap 6 (5-15); BUN 12 mg/dL (7-18); BUN/Creat Ratio 14.9 RATIO (10-20); Calcium,Total 9.4 mg/dL (8.5-10.1); Chloride 108 mmol/L (98-107); EST Glomerular Filtration Rate 95 mL/min (>60); Est Glom Filt Rate - Afr Amer 115 mL/min (>60); Glucose 95 mg/dL (74-106); Potassium 3.9 mmol/L (3.5-5.1); Sodium Level 138 mmol/L (136-145)
--- OUTSIDE RECORDS SUMMARY | 2023-09-11 13:41 | XMS RPT_ITS | CCD ---
Author Name Unknown Address [address] [facility] [address] [place] [address] Organization [facility] Care Team Providers Care Brand Manager Name Role Phone Chetan Lamb DO Primary Care Provider CHETAN LAMB Primary Care Unavailable VICKY, MARCIA Referring Unavailable MARCIA PERRY Referring Unavailable CHETAN LAMB Primary Care Unavailable CHETAN LAMB Primary Care Unavailable MARCIA PERRY Attending Unavailable MARCIA PERRY Referring Unavailable DARIO PEREZ Attending Unavailable CHETAN LAMB Primary Care Unavailable FRANCINE ROSARIO Attending Unavailable CHETAN LAMB Primary Care Unavailable CHETAN LAMB Referring Unavailable CHETAN LAMB Primary Care Unavailable CHETAN LAMB Attending Unavailable CHETAN LAMB Primary Care Unavailable NOREEN LONDON Referring Unavailable CHETAN LAMB Primary Care Unavailable NOREEN LONDON Referring Unavailable CHETAN LAMB Primary Care Unavailable NOREEN LONDON Attending Unavailable CHETAN LAMB Primary Care Unavailable CHETAN LAMB Primary Care Unavailable MARCIA PERRY Attending Unavailable CHETAN LAMB Primary Care Unavailable TRISTEN PERRYEKAH Attending Unavailable Chetan Lamb DO Primary Care Provider [phone] Allergies Allergy Classification Reported Allergen(s) Allergy Type Date of Onset Reaction(s) Facility (20 sources) Seasonal allergy; Translations: [SEASONAL ALLERGIES] Propensity to adverse reactions 3 Other: See Comments [facility] Work Phone: Medications Current Medications Medication Drug Class(es) Dates Sig (Normalized) Sig (Original) amoxicillin 875 mg oral tablet (1 source) Penicillin-class Antibacterial Start: 08-24-2022 End: 09-03-2022 take 1 tablet by mouth twice daily amoxicillin (AMOXIL) 875 mg tablet Indications: Right ear pain Take 1 tablet by mouth twice daily for 10 days. 20 tablet 0 08/24/2022 09/03/2022 Active Completed/Discontinued Medications Medication Drug Class(es) Dates Sig (Normalized) Sig (Original) amphetamine aspartate 1.875 mg / amphetamine sulfate 1.875 mg / dextroamphetamine saccharate 1.875 mg / dextroamphetamine sulfate 1.875 mg oral tablet (3 sources) Central Nervous System Stimulant Start: 03-15-2022 End: 04-17-2022 take 1 tablet by mouth once daily Amphetamine-Dextro amphetamine (ADDERALL) 7.5 mg tablet Indications: Attention deficit hyperactivity disorder (ADHD), predominantly inattentive type , Anxiety with depression Take 1 tablet by mouth once daily for 30 days. 30 tablet 0 03/17/2022 04/17/2022 Discontinued Problems Active Problems Problem Classification Problem Date Documented Da te Episodic/Chronic Anxiety disorders (12 sources) Mixed anxiety and depressive disorder; Translations: [Other specified anxiety disorders] Onset: 3 Chronic Attention-deficit, conduct, and disruptive behavior disorders (3 sources) Attention deficit hyperactivity disorder, predominantly inattentive type; Translations: [Attention-deficit hyperactivity disorder, predominantly inattentive type] Chronic Contraceptive and procreative management (2 sources) Oral contraception; Translations: [Encounter for surveillance of contraceptive pills] Onset: 3 03-20-2023 Episodic Esophageal disorders (5 sources) Gastroesophageal reflux disease; Translations: [Gastro-esophageal reflux disease without esophagitis] Onset: 2 Chronic Immunizations and screening for infectious disease (4 sources) Patient encounter status; Translations: [Encounter for screening for human papillomavirus (HPV)] Onset: 3 03-20-2023 Episodic Other ear and sense organ disorders (1 source) Otalgia, right ear; Translations: [Otalgia, unspecified] Episodic Other gastrointestinal disorders (4 sources) Intolerance to food; Translations: [Malabsorption due to intolerance, not elsewhere classified] Chronic Other gastrointestinal disorders (1 source) Malabsorption due to intolerance, not elsewhere classified; Translations: [Fatty food intolerance] Onset: 2 Chronic Other gastrointestinal disorders (4 sources) Functional diarrhea; Translations: [Functional diarrhea] Episodic Other gastrointestinal disorders (3 sources) Chronic constipation; Translations: [Other constipation] Episodic Other gastrointestinal disorders (4 sources) Abdominal bloating; Translations: [Abdominal distension (gaseous)] Episodic Other injuries and conditions due to external causes (1 source) Injury of nail bed of finger; Translations: [Unspecified injury of left wrist, hand and finger(s), initial encounter] Episodic Other liver diseases (6 sources) Steatosis of liver; Translations: [Fatty (change of) liver, not elsewhere classified] Onset: 3 03-14-2023 Chronic Other liver diseases (1 source) Fatty (change of) liver, not elsewhere classified; Translations: [Fatty liver] Onset: 3 Chronic Other nutritional; endocrine; and metabolic disorders (7 sources) Body mass index 40+ - severely obese; Translations: [Morbid (severe) obesity due to excess calories] Onset: 3 03-14-2023 Chronic Other skin disorders (2 sources) Ingrowing toenail; Translations: [Ingrowing nail] Episodic Past or Other Problems Problem Classification Problem Date Documented Da te Episodic/Chronic Abdominal pain (8 sources) Right upper quadrant pain; Translations: [Right upper quadrant pain] Onset: 03-14-2023 Episodic Biliary tract disease (3 sources) Cholelithiasis without obstruction; Translations: [Calculus of gallbladder without cholecystitis without obstruction] Onset: 05-12-2022 Episodic Nausea and vomiting (8 sources) Nausea and vomiting; Translations: [Nausea with vomiting, unspecified] Onset: 05-09-2022 Episodic Other gastrointestinal disorders (1 source) Functional diarrhea; Translations: [Functional diarrhea] Onset: 05-09-2022 Episodic Other gastrointestinal disorders (1 source) Other constipation; Translations: [Chronic constipation] Onset: 05-09-2022 Episodic Other gastrointestinal disorders (1 source) Abdominal distension (gaseous); Translations: [Abdominal bloating] Onset: 05-09-2022 Episodic Other nutritional; endocrine; and metabolic disorders (20 sources) Childhood obesity; Translations: [Overweight] Onset: 10-28-2019 10-28-2019 Episodic Other screening for suspected conditions (not mental disorders or infectious disease) (9 sources) Other specified abnormal findings of blood chemistry; Translations: [Other abnormal blood chemistry] Onset: 03-14-2023 03-14-2023 Episodic Other skin disorders (1 source) Ingrowing nail; Translations: [Ingrown toenail] Onset: 04-27-2022 Episodic Results Test Name Value Interpretation Reference Range Facil ity Vital Signs Date Time Vital Sign Value Performing Clinician Cecilia [email or web address] 03-20-2023 15:03-0400 Body height 165.1 cm Francine Essex SALES OUTFITTER.FIELD SERVICE POULTRY TECHNICIAN Work Phone: [facility] 03-20-2023 15:03-0400 Body weight 123.83 kg Francine Marlene SALES OUTFITTER.FIELD SERVICE POULTRY TECHNICIAN Work Phone: [facility] 03-20-2023 15:03-0400 Diastolic blood pressure 70 mm[Hg] Francine Essex SALES OUTFITTER.FIELD SERVICE POULTRY TECHNICIAN Work Phone: [facility] 03-20-2023 15:03-0400 Systolic blood pressure 122 mm[Hg] Francine Marlene SALES OUTFITTER.FIELD SERVICE POULTRY TECHNICIAN Work Phone: [facility] 03-14-2023 15:08-0400 Body height 167 cm Chetan Lamb DO Work Phone: [facility] 03-14-2023 15:08-0400 Body temperature 97.9 [degF] Chetan Lamb DO Work Phone: [facility] 03-14-2023 15:08-0400 Body weight 123.38 kg Chetan Lamb DO Work Phone: [facility] 03-14-2023 15:08-0400 Diastolic blood pressure 68 mm[Hg] Chetan Lamb DO Work Phone: [facility] 03-14-2023 15:08-0400 Heart rate 76 /min Chetan Lamb DO Work Phone: [facility] 03-14-2023 15:08-0400 Respiratory rate 16 /min Chetan Lamb DO Work Phone: [facility] 03-14-2023 15:08-0400 Systolic blood pressure 100 mm[Hg] Chetan Lamb DO Work Phone: [facility] 12-22-2022 14:28-0400 Body weight 126.1 kg Noreen Isaoble SALES OUTFITTER.FIELD SERVICE POULTRY TECHNICIAN Work Phone: [facility] 12-22-2022 14:28-0400 Diastolic blood pressure 74 mm[Hg] Noreen Knoble SALES OUTFITTER.FIELD SERVICE POULTRY TECHNICIAN Work Phone: [facility] 12-22-2022 14:28-0400 Heart rate 88 /min Noreen Knoble SALES OUTFITTER.FIELD SERVICE POULTRY TECHNICIAN Work Phone: [facility] 12-22-2022 14:28-0400 Respiratory rate 16 /min Noreen Isaoble SALES OUTFITTER.FIELD SERVICE POULTRY TECHNICIAN Work Phone: [facility] 12-22-2022 14:28-0400 Systolic blood pressure 120 mm[Hg] Noreen Isaoble SALES OUTFITTER.FIELD SERVICE POULTRY TECHNICIAN Work Phone: [facility] 08-24-2022 14:31-0500 Body weight 123.2 kg Marcia Vicky SALES OUTFITTER.FIELD SERVICE POULTRY TECHNICIAN Work Phone: [facility] 08-24-2022 14:31-0500 Diastolic blood pressure 84 mm[Hg] Marcia Vicky SALES OUTFITTER.FIELD SERVICE POULTRY TECHNICIAN Work Phone: [facility] 08-24-2022 14:31-0500 Heart rate 80 /min Marcia Vicky SALES OUTFITTER.FIELD SERVICE POULTRY TECHNICIAN Work Phone: [facility] 08-24-2022 14:31-0500 Respiratory rate 16 /min Marcia Vicky SALES OUTFITTER.FIELD SERVICE POULTRY TECHNICIAN Work Phone: [facility] 08-24-2022 14:31-0500 SaO2% (BldA) [Mass fraction] 96 % Marcia Vicky SALES OUTFITTER.FIELD SERVICE POULTRY TECHNICIAN Work Phone: [facility] 08-24-2022 14:31-0500 Systolic blood pressure 120 mm[Hg] Marcia Vicky SALES OUTFITTER.FIELD SERVICE POULTRY TECHNICIAN Work Phone: [facility] 06-01-2022 15:20-0400 Body weight 120.93 kg Marcia Vicky SALES OUTFITTER.FIELD SERVICE POULTRY TECHNICIAN Work Phone: [facility] 06-01-2022 15:20-0400 Diastolic blood pressure 78 mm[Hg] Marcia Vicky SALES OUTFITTER.FIELD SERVICE POULTRY TECHNICIAN Work Phone: [facility] 06-01-2022 15:20-0400 Heart rate 70 /min Marcia Vicky SALES OUTFITTER.FIELD SERVICE POULTRY TECHNICIAN Work Phone: [facility] 06-01-2022 15:20-0400 Respiratory rate 16 /min Marcia Vicky SALES OUTFITTER.FIELD SERVICE POULTRY TECHNICIAN Work Phone: [facility] 06-01-2022 15:20-0400 SaO2% (BldA) [Mass fraction] 97 % Marcia Vicky SALES OUTFITTER.FIELD SERVICE POULTRY TECHNICIAN Work Phone: [facility] 06-01-2022 15:20-0400 Systolic blood pressure 118 mm[Hg] Marcia Vicky SALES OUTFITTER.FIELD SERVICE POULTRY TECHNICIAN Work Phone: [facility] 05-08-2022 15:53-0400 Body weight 119.75 kg Marcia Vicky SALES OUTFITTER.FIELD SERVICE POULTRY TECHNICIAN Work Phone: [facility] 05-08-2022 15:53-0400 Diastolic blood pressure 82 mm[Hg] Marcia Vicky SALES OUTFITTER.FIELD SERVICE POULTRY TECHNICIAN Work Phone: [facility] 05-08-2022 15:53-0400 Heart rate 76 /min Marcia Vicky SALES OUTFITTER.FIELD SERVICE POULTRY TECHNICIAN Work Phone: [facility] 05-08-2022 15:53-0400 Respiratory rate 16 /min Marcia Vicky SALES OUTFITTER.FIELD SERVICE POULTRY TECHNICIAN Work Phone: [facility] 05-08-2022 15:53-0400 Systolic blood pressure 116 mm[Hg] Marcia Vicky SALES OUTFITTER.FIELD SERVICE POULTRY TECHNICIAN Work Phone: [facility] 03-15-2022 15:37-0400 Body weight 119.84 kg Marcia Vicky SALES OUTFITTER.FIELD SERVICE POULTRY TECHNICIAN Work Phone: [facility] 03-15-2022 15:37-0400 Diastolic blood pressure 74 mm[Hg] Marcia Vicky SALES OUTFITTER.FIELD SERVICE POULTRY TECHNICIAN Work Phone: [facility] 03-15-2022 15:37-0400 Heart rate 82 /min Marcia Perry SALES OUTFITTER.FIELD SERVICE POULTRY TECHNICIAN Work Phone: [facility] 03-15-2022 15:37-0400 Respiratory rate 16 /min Marcia Perry SALES OUTFITTER.FIELD SERVICE POULTRY TECHNICIAN Work Phone: [facility] 03-15-2022 15:37-0400 SaO2% (BldA) [Mass fraction] 96 % Marcia Perry SALES OUTFITTER.FIELD SERVICE POULTRY TECHNICIAN Work Phone: [facility] 03-15-2022 15:37-0400 Systolic blood pressure 120 mm[Hg] Marcia Perry SALES OUTFITTER.FIELD SERVICE POULTRY TECHNICIAN Work Phone: [facility] Encounters Encounter Date Encounter Type Care Provider Facility Start: 07-27-2023 Refill Chetan lr DO Work Phone: [facility] Procedures Date Procedure Procedure Detail Performing Clinician Start: 03-20-2023 Iadna chlamydia trac homatis amplified probe tq Francine Essex SALES OUTFITTER.FIELD SERVICE POULTRY TECHNICIAN Work Phone: Start: 08-24-2022 Urnls dip stick/tabl et rgnt auto w/o microscopy Marcia Perry SALES OUTFITTER.FIELD SERVICE POULTRY TECHNICIAN Work Phone: Start: 05-12-2022 Hepatobil syst imag inc gb w/pharma intervenj Marcia Perry SALES OUTFITTER.FIELD SERVICE POULTRY TECHNICIAN Work Phone: Start: 05-09-2022 Us abdominal real ti me w/image documentation Marcia Perry SALES OUTFITTER.FIELD SERVICE POULTRY TECHNICIAN Work Phone: Start: 05-08-2022 Adult depression scr eening assessment Marcia Perry SALES OUTFITTER.FIELD SERVICE POULTRY TECHNICIAN Work Phone: Start: 03-14-2022 Adult depression scr eening assessment Marcia Perry SALES OUTFITTER.FIELD SERVICE POULTRY TECHNICIAN Work Phone: Start: 10-03-2021 Adult depression scr eening assessment Chetan Lamb DO Work Phone: Start: 08-24-2021 Urine test visual color cmprsn ezio Perry SALES OUTFITTER.FIELD SERVICE POULTRY TECHNICIAN Work Phone: Plan of Treatment Date Care Activity Detail Author Start: 03-20-2026 PAP TESTING PAP TESTING [facility] Start: 04-12-2024 End: 06-12-2024 Lipid 1996 panel - Serum or Plasma LIPID PANEL BASIC Lab Routine Obesity, Class III, BMI 40-49.9 (morbid obesity) (HCC) Expected: 04/12/2024 (Approximate), Expires: 06/12/2024 [facility] Work Phone: Immunizations Immunization Date Immunization Notes Care Provider Janel bender 10-28-2019 influenza, injectabl e, quadrivalent, preservative free Chetan Lamb DO Work Phone: [facility] 10-28-2019 influenza virus vacc ine, unspecified formulation Chetan Lamb DO Work Phone: [facility] 03-18-2018 meningococcal polysaccharide (groups A, C, Y and W-135) diphtheria toxoid conjugate vaccine (MCV4P) Chetan Lamb DO Work Phone: [facility] 03-06-2017 Human Papillomavirus 9-valent vaccine Chetan Lamb DO Work Phone: [facility] 03-16-2016 Human Papillomavirus 9-valent vaccine Chetan Lamb DO Work Phone: [facility] Work Phone: 06-04-2015 influenza, injectabl e, quadrivalent, contains preservative Chetan Lamb DO Work Phone: [facility] 05-23-2014 human papilloma viru s vaccine, quadrivalent Chetan Lamb DO Work Phone: [facility] Work Phone: 05-23-2014 influenza, injectabl e, quadrivalent, preservative free Chetan Lamb DO Work Phone: [facility] Work Phone: 05-24-2013 influenza virus vacc ine, unspecified formulation Chetan Lamb DO Work Phone: [facility] Work Phone: 03-21-2013 Meningococcal, MCV4, unspecified conjugate formulation(groups A, C, Y and W-135) Chetan Lamb DO Work Phone: [facility] 03-21-2013 tetanus toxoid, redu cynthia diphtheria toxoid, and acellular pertussis vaccine, adsorbed Chetan Lamb DO Work Phone: [facility] 03-21-2013 varicella virus vaccine Jord an Lamb DO Work Phone: [facility] 04-03-2007 measles, mumps and rubella virus vaccine Chetan Lamb DO Work Phone: [facility] 04-24-2006 diphtheria, tetanus toxoids and acellular pertussis vaccine Chetan Lamb DO Work Phone: [facility] 04-24-2006 poliovirus vaccine, inactivated Chetan Lamb DO Work Phone: [facility] 03-10-2004 diphtheria, tetanus toxoids and acellular pertussis vaccine Chetan Lamb DO Work Phone: [facility] 03-10-2004 haemophilus influenz ae type b vaccine, HbOC conjugate Chetan Lamb DO Work Phone: [facility] 03-27-2003 measles, mumps and rubella virus vaccine Chetan Lamb DO Work Phone: [facility] 03-27-2003 varicella virus vaccine Jord an Lamb DO Work Phone: [facility] 2002 hepatitis B vaccine, pediatric or pediatric/adolescent dosage Chetan Lamb DO Work Phone: [facility] 2002 diphtheria, tetanus toxoids and acellular pertussis vaccine Chetan Lamb DO Work Phone: [facility] 2002 haemophilus influenz ae type b vaccine, HbOC conjugate Chetan Lamb DO Work Phone: [facility] 2002 pneumococcal conjuga te vaccine, 7 valent Chetan Lamb DO Work Phone: [facility] 2002 poliovirus vaccine, inactivated Chetan Lamb DO Work Phone: [facility] 2002 diphtheria, tetanus toxoids and acellular pertussis vaccine Chetan Lamb DO Work Phone: [facility] 2002 haemophilus influenz ae type b vaccine, HbOC conjugate Chetan Lamb DO Work Phone: [facility] 2002 pneumococcal conjuga te vaccine, 7 valent Chetan Lamb DO Work Phone: [facility] 2002 poliovirus vaccine, inactivated Chetan Lamb DO Work Phone: [facility] 2002 haemophilus influenz ae type b vaccine, HbOC conjugate Chetan Lamb DO Work Phone: [facility] 2002 diphtheria, tetanus toxoids and acellular pertussis vaccine Chetan Lamb DO Work Phone: [facility] 2002 pneumococcal conjuga te vaccine, 7 valent Chetan Lamb DO Work Phone: [facility] 2002 poliovirus vaccine, inactivated Chetan Lamb DO Work Phone: [facility] 2002 hepatitis B vaccine, pediatric or pediatric/adolescent dosage Chetan Lamb DO Work Phone: [facility] 2002 hepatitis B vaccine, pediatric or pediatric/adolescent dosage Chetan Lamb DO Work Phone: [facility] Payers Date Payer Category Payer Unknown [id number] 2010 Private Health Insurance [facility] [id number] 2010-Present [phone] [address] [address] [place] [address] [facility] [id number] 2010 Private Health Insurance [id number] 2010 Unknown [id number] Social History Date Type Detail Facility Start: 01-22-2012 End: 05-08-2022 Tobacco smoking status NHIS Never smoked tobacco [facility] Work Phone: Start: 01-22-2012 End: 05-08-2022 Tobacco use and exposure Smokeless tobacco non-user [facility] Work Phone: Start: 01-20-2021 End: 03-20-2023 Alcohol intake Lifetime non-drinker (finding) [facility] Start: 12-06-2020 End: 08-23-2022 History SDOH Alcohol Frequency 1 [facility] Start: 12-06-2020 End: 08-23-2022 History SDOH Alcohol Std Drinks 98 [facility] Start: 12-06-2020 End: 08-23-2022 History SDOH Social Connections Phone 3 [facility] Start: 12-06-2020 End: 08-23-2022 History SDOH Social Connections Get Together 2 [facility] Start: 12-06-2020 History SDOH Social Connections Living 7 [facility] Start: 12-06-2020 History SDOH Stress 4 [facility] Start: 12-06-2020 Education 21 [facility] Start: 2002 Sex Assigned At Not on file [facility] Start: 09-21-2021 End: 06-01-2022 Exposure to SARS-CoV-2 (event) Not sure [facility] Start: 05-01-2022 End: 05-11-2022 Exposure to SARS-CoV-2 (event) Unable to assess [facility] Work Phone: Start: 08-23-2022 History SDOH Alcohol Std Drinks 0 [facility] Start: 08-23-2022 History SDOH Social Connections Phone 5 [facility] Start: 08-23-2022 History SDOH Social Connections Living 8 [facility] Start: 08-23-2022 End: 12-22-2022 History of Social function [facility] Start: 08-23-2022 End: 12-22-2022 Social connection and isolation panel [facility] Do you belong to any clubs or organizations such as protestant groups, unions, fraternal or athletic groups, or school groups? No [facility] How often do you att end meetings of the clubs or organizations you belong to? Patient refused [facility] Are you now , , , , never or living with a partner? Living with partner [facility] How often to you hav e a drink containing alcohol? Never [facility] How hard is it for y ou to pay for the very basics like food, housing, medical care, and heating Hard [facility] Do you feel stress - tense, restless, nervous, or anxious, or unable to sleep at night because your mind is troubled all the time - these days [OSQ] To some extent [facility] (I/We) worried wheth er (my/our) food would run out before (I/we) got money to buy more. Never true [facility] Start: 12-04-2020 Sexual orientation Heterosexual (finding) [facility] Clinical Notes 03-08-2016 to 07-30-2023 Telephone Encounter - Gladys Wisdom LPN - 07/30/2023 1:05 PM ESTTelephone Encounter - Chloe Hamilton APRN.CNP - 04/12/2023 2:24 PM EDFrancine Billy APRN.CNP - 03/20/2023 2:57 PM EDT Note Date & Type Note [facility] 07-30-2023 Miscellaneous Notes MIGUELANGEL-03/14/23 Labs-03/14/23 NOV-none Gladys Wisdom LPN documented in this encounter [facility] 04-12-2023 Miscellaneous Notes Noted. Lipid panel signed. Chloe Hamilton APRN.FIELD SERVICE POULTRY TECHNICIAN Pt called and is notified of providers results and instructions. Pt voices understanding. Sent information to Pt in [employer] message per Pt request. Pt declined colonoscopy at this time. Pt said she want to recheck her Lipid panel in a year please sign. Emily Martin, RN Please call patient and let her know that I am sorry for the delay in getting back with her and her blood work results Her vitamin D is too low. I would like her to be taking at least 2000 international unit(s) a day of vitamin D3 with a meal Also her vitamin B12 is low normal. I would like her to be taking at least 1000 mcg a day of vitamin B12 supplement a day. Can take this at same time as vitamin d if she wishes Her cholesterol is very high. Needs to be limiting her animal fats such as fried/fast/fatty foods and red meats and heavy creams. Would recheck this in 6-12 months Her celiac testing antibody levels are normal but her haplotype is category 3 positive which means that she is at risk for gluten intolerance. She can have further testing if interested, which would be a colonoscopy by a General surgeon. Otherwise I would recommend avoiding gluten as much as she is able. She doesn't have a gluten allergy though. 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 Form on PCP desk to review and sign. Stacey Moore Any update if paperwork has been signed and submitted? Erica Villaseñor Ma Form on pcp desk to sign Holly Mckoy Ma Notified pt of options of how to get paperwork to our office. See [employer] message. Erica Villaseñor Ma documented in this encounter [facility] 03-20-2023 Note HNO ID: [id number] Author: Francine Rosario APRN.FIELD SERVICE POULTRY TECHNICIAN Service: ? Author Type: Nurse Practitioner Type: Progress Notes Filed: 03/20/2023 3:41 PM Note Text: Business Services Tech offered: Patient declinesLainey Falcon is a 23 year old who presents for an annual gynecologic exam without complaints. Menses: no menses in over 1 yr. Contraception: combined hormonal contraceptives HPV vaccine: Yes Last Pap: never Last mammogram: never Sexually active: Yes Patient concerns for STD exposure: No. Pain with intercourse: No Postcoital bleeding: No OB History T0 L0 SAB0 IAB0 Ectopic0 Multiple0 Live Births0 Director Of Institutional Giving History LMP: 07/14/2021, Drug Induced Amenorrhea Age at Menarche: Age at First : Age at Menopause: Director Of Institutional Giving History Comments: Sexual Activity: Yes; Male Contraception: Pill PAST MEDICAL HISTORY Diagnosis Date Concussion 05/2015 volleyball NEGATIVE MEDICAL HISTORY 2013 normal color vision Viral meningitis 2011 [facility] PAST SURGICAL HISTORY Procedure Laterality Date L'SCOPE CHOLECYSTECTOMY N/A 06/22/2022 TONSILLECTOMY AND ADENOIDECTOMY age 5 yrs [place] INGROWN TOENAIL Right right big toe FAMILY HISTORY Problem Relation Age of Onset other (Right bundle Branch Blockage) Mother 44 other (thyroid aqxaeos-lkn-oirkokhae) Mother Lipids Father other (MVP) Father other (right bundle branch block) Father other (thyroid aiqvgmj-gtp-cgoxsabmp) Father other (cancerous thyroid nodules) Sister thinks entire thyroid was removed No Known Problems Brother No Known Problems Brother Diabetes Maternal Grandmother Lipids Maternal Grandmother Heart Maternal Grandmother [place] Lipids Maternal Grandfather No Known Problems Paternal Grandmother Lipids Paternal Grandfather other (pacemaker) Paternal Grandfather SOCIAL HISTORY Social History Tobacco Use Smoking status: Never Smokeless tobacco: Never Vaping Use Vaping Use: Never used Substance Use Topics Alcohol use: Never Drug use: Never REVIEW OF SYSTEMS Abdomen: No abdominal pain, vomiting, +nausea + diarrhea, +constipation. No bloating, early satiety, indigestion, or increased flatulence. Bladder: No dysuria, gross hematuria, urinary frequency, urinary urgency, or incontinence. Breast: No breast lumps, nipple d/c, overlying skin changes, redness or skin retraction. Allergies and current medication updated:Yes EXAM: BP 122/70 Ht 5' 5 (1.65m) Wt 273 lb (123.8kg) LMP 07/14/2021 BMI 45.43 kg/(m2). GENERAL: pleasant, female in no apparent distress HEENT: Normocephalic, atraumatic, mucus membranes moist, and no lesions NECK: Supple, full range of motion, no adenopathy, and thyroid normal DERMATOLOGY: Normal, without lesions, non-icteric, and non-hirsute BREAST: soft, non-tender, symmetric, no dominant mass, normal nipple-areolar complex, no lymphadenopathy, and no nipple discharge CHEST: Normal inspiratory effort ABDOMEN: soft, non-tender, and no masses PELVIC: external genitalia normal, normal Bartholin's glands, urethra, [place]'s glands, no vulvar lesions, no cervical lesions, good vaginal support, physiologic discharge present, normal appearing perineal body and perianal region BIMANUAL: uterus normal size, shape and consistency, no adnexal masses, and non-tender RECTOVAGINAL: deferred. NEURO: alert and oriented x3,exam grossly non-focal EXTREMITIES: normal ASSESSMENT/PLAN: 1) Health maintenance: Pap done with reflex HPV. Nutrition, exercise and routine health maintenance exams reviewed. Calcium/Vitamin D supplementation information provided. HPV vaccine: completed series 2) Contraception: combined hormonal contraceptives. Contraceptive options reviewed and information provided. 3) STD screening: Accepted STD check for Gonorrhea and Chlamydia. 4) Follow up one year or sooner as needed Discussed weight gain could be the reason for not having any menses along with the OCP. Discussed diet, high protein and lower carb foods. Informed that the office does do weight management if would be interested in that. Francine Rosario APRN.[facility] 03-20-2023 History of Present illness Narrative Business Services Tech offered: Patient declines. Terrie is a 23 year old who presents for an annual gynecologic exam without complaints. Menses: no menses in over 1 yr. Contraception: combined hormonal contraceptives HPV vaccine: Yes Last Pap: never Last mammogram: never Sexually active: Yes Patient concerns for STD exposure: No. Pain with intercourse: No Postcoital bleeding: No OB History T0 L0 SAB0 IAB0 Ectopic0 Multiple0 Live Births0 Director Of Institutional Giving History LMP: 07/14/2021, Drug Induced Amenorrhea Age at Menarche: Age at First : Age at Menopause: Director Of Institutional Giving History Comments: Sexual Activity: Yes; Male Contraception: Pill PAST MEDICAL HISTORY Diagnosis Date Concussion 05/2015 volleyball NEGATIVE MEDICAL HISTORY 2012 normal color vision Viral meningitis 2011 [facility] PAST SURGICAL HISTORY Procedure Laterality Date L'SCOPE CHOLECYSTECTOMY N/A 06/22/2022 TONSILLECTOMY & ADENOIDECTOMY <AGE 14 age 5 yrs [place] INGROWN TOENAIL Right right big toe FAMILY HISTORY Problem Relation Age of Onset other (Right bundle Branch Blockage) Mother 44 other (thyroid flmyydq-suj-euyrmvwij) Mother Lipids Father other (MVP) Father other (right bundle branch block) Father other (thyroid trsnpti-oge-ptmjvaspn) Father other (cancerous thyroid nodules) Sister thinks entire thyroid was removed No Known Problems Brother No Known Problems Brother Diabetes Maternal Grandmother Lipids Maternal Grandmother Heart Maternal Grandmother [place] Lipids Maternal Grandfather No Known Problems Paternal Grandmother Lipids Paternal Grandfather other (pacemaker) Paternal Grandfather SOCIAL HISTORY Social History Tobacco Use Smoking status: Never Smokeless tobacco: Never Vaping Use Vaping Use: Never used Substance Use Topics Alcohol use: Never Drug use: Never REVIEW OF SYSTEMS Abdomen: No abdominal pain, vomiting, +nausea + diarrhea, +constipation. No bloating, early satiety, indigestion, or increased flatulence. Bladder: No dysuria, gross hematuria, urinary frequency, urinary urgency, or incontinence. Breast: No breast lumps, nipple d/c, overlying skin changes, redness or skin retraction. Allergies and current medication updated:Yes EXAM: BP 122/70 Ht 5' 5 (1.65m) Wt 273 lb (123.8kg) LMP 07/14/2021 BMI 45.43 kg/(m^2). GENERAL: pleasant, female in no apparent distress HEENT: Normocephalic, atraumatic, mucus membranes moist, and no lesions NECK: Supple, full range of motion, no adenopathy, and thyroid normal DERMATOLOGY: Normal, without lesions, non-icteric, and non-hirsute BREAST: soft, non-tender, symmetric, no dominant mass, normal nipple-areolar complex, no lymphadenopathy, and no nipple discharge CHEST: Normal inspiratory effort ABDOMEN: soft, non-tender, and no masses PELVIC: external genitalia normal, normal Bartholin's glands, urethra, [place]'s glands, no vulvar lesions, no cervical lesions, good vaginal support, physiologic discharge present, normal appearing perineal body and perianal region BIMANUAL: uterus normal size, shape and consistency, no adnexal masses, and non-tender RECTOVAGINAL: deferred. NEURO: alert and oriented x3,exam grossly non-focal EXTREMITIES: normal ASSESSMENT/PLAN: 1) Health maintenance: Pap done with reflex HPV. Nutrition, exercise and routine health maintenance exams reviewed. Calcium/Vitamin D supplementation information provided. HPV vaccine: completed series 2) Contraception: combined hormonal contraceptives. Contraceptive options reviewed and information provided. 3) STD screening: Accepted STD check for Gonorrhea and Chlamydia. 4) Follow up one year or sooner as needed Discussed weight gain could be the reason for not having any menses along with the OCP. Discussed diet, high protein and lower carb foods. Informed that the office does do weight management if would be interested in that. Francine Rosario APRN.[employer] P[employer] TECHNICIAN documented in this encounter [facility] 03-14-2023 Note HNO ID: [id number] Author: Chetan Lamb, DO Service: ? Author Type: Physician Type: Progress Notes Filed: 03/14/2023 9:55 PM Note Text: CC: Terrie Rubio is a 23 year old female who presents to the office for physical HPI: Recently found to have mildly elevated LFTs and was diagnosed with fatty liver disease by RUQ US due to having some intermittent b/l RUQ and LUQ abdominal discomfort, seems to be coming and going. No known obvious trigger. Not associated with eating or bowel movements or hunger times. No fevers or chills. No nausea or vomiting. + acid reflux- taking omeprazole 20 mg a day Hx of cholecystectomy. Has an appt with [facility] locally for opinion in 1-2 months. No new symptoms. Mood, was on prozac in the past, doesn't feel this is helpful. Does struggle at times to fall asleep at night due to I just can't turn my mind off. 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 No SI or HI. Does have good support from family and Fiance PAST MEDICAL HISTORY Diagnosis Date Concussion 05/2015 volleyball NEGATIVE MEDICAL HISTORY 2012 normal color vision Viral meningitis 2011 [facility] PAST SURGICAL HISTORY Procedure Laterality Date L'SCOPE CHOLECYSTECTOMY N/A 06/22/2022 TONSILLECTOMY AND ADENOIDECTOMY age 5 yrs Social History: Social History Tobacco Use Smoking status: Never Smokeless tobacco: Never Vaping Use Vaping Use: Never used Substance Use Topics Alcohol use: Never Drug use: Never FAMILY HISTORY Problem Relation Age of Onset other (Right bundle Branch Blockage) Mother 44 other (thyroid ydetgyn-kxl-okqkrckqo) Mother Lipids Father other (MVP) Father other (right bundle branch block) Father other (thyroid mppfgfl-bsi-kjznnpryp) Father other (cancerous thyroid nodules) Sister thinks entire thyroid was removed No Known Problems Brother No Known Problems Brother Diabetes Maternal Grandmother Lipids Maternal Grandmother Heart Maternal Grandmother [place] Lipids Maternal Grandfather No Known Problems Paternal Grandmother Lipids Paternal Grandfather other (pacemaker) Paternal Grandfather Current Outpatient prescriptions: Drospirenone-Ethinyl Estradiol (MARCIA, 28,) 3-0.02 mg per tablet Take 1 tablet by mouth once daily. omeprazole (PRILOSEC) 20 mg capsule Take 1 capsule by mouth daily before breakfast. 1/2 hr before meal. citalopram hydrobromide (CELEXA) 10 mg tablet Take 1 tablet PO in the evening x 2 weeks, then increase dose to 2 tablets (20 mg) in the evening CHOLESTYRAMINE, BULK, MISC Take by mouth. Cholecalciferol, Vitamin D3, 125 mcg (5,000 unit) cap Take 1 capsule by mouth once daily. Allergies: ALLERGIES Allergen Reactions Seasonal Allergies Other: See Comments Fall and Spring ROS: See HPI PE: 03/14/23 1508 BP: 100/68 Pulse: 76 Resp: 16 Temp: 36.6 ?C (97.9 ?F) TempSrc: Right Tympanic Weight: 123.4 kg (272 lb) Height: 167 cm (5' 5.75 ) Gen: AANDO, NAD, non-toxic appearing, Pleasant, cooperative HEENT: NT/AC, PERRLA, wearing glasses, EOMs intact b/l, nares clear and patent b/l, pharynx without erythema, exudate or lesions. MMM, Uvula midline. EACs without erythema or debris. TMs pearly montalvo with intact landmarks b/l. Neck: supple, No cervical LAD, no thyromegaly, no carotid bruits CV: RRR, normal S1 and S2, no murmurs, no gallops, no rubs, Pulses 2+ and symmetric in UE and LE b/l Lungs: normal respiratory effort, CTA b/l, no wheezing or rhonchi or rales Abd: soft, mild RUQ AND LUQ soreness without r/r/g, morbidly obese, ND, +BS, no hepatosplenomegaly MS: FROM all 4 extremities Neuro: CN II-XII intact b/l, strength 5/5 b/l UE and LE, DTRs 2/4 UE and LE, sensation intact. Skin: warm, dry, intact, No rashes or lesions on exposed skin. No edema, normal pulses ASSESSMENT/PLAN: 1. Well adult exam - ICD9: V70.0, ICD10: Z00.00 (primary diagnosis) - Counseled on healthy diet and regular exercise - Calcium intake with supplements or by diet of 1000 mg/day for under 50, 5673-0788 mg/day for 50+ - Discussed need and benefit for weight loss. BMI 44.24 kg/(m2) - VITAMIN D 25 HYDROXY - VITAMIN B12 BLOOD - COMP METABOLIC PANEL - HGB A1C - CELIAC COMPREHENSIVE PANEL - LIPID PANEL, NONFASTING 2. Elevated LFTs - ICD9: 790.6, ICD10: R79.89 F/u with [facility] Villavicencio for opinion, found to have fatty liver changes by RUQ US recently and has been having some upper abdominal pressure/soreness. May need EGD and other testing as d/w her today - COMP METABOLIC PANEL - CELIAC COMPREHENSIVE PANEL 3. RUQ pain - ICD9: 789.01, ICD10: R10.11 F/u with [facility] Friend for opinion, found to have fatty liver changes by RUQ US recently and has been having some upper abdominal pressure/soreness. May need EGD and other testing as d/w her today - COMP METABOLIC PANEL - CELIAC COMPREHENSIVE PANEL 4. Fa (more content not included)... [facility] 03-14-[facility]23 History of Present illness Narrative CC: Terrie Rubio is a 23 year old female who presents to the office for physical HPI: Recently found to have mildly elevated LFTs and was diagnosed with fatty liver disease by RUQ US due to having some intermittent b/l RUQ and LUQ abdominal discomfort, seems to be coming and going. No known obvious trigger. Not associated with eating or bowel movements or hunger times. No fevers or chills. No nausea or vomiting. + acid reflux- taking omeprazole 20 mg a day Hx of cholecystectomy. Has an appt with Gastro Dr. Friend locally for opinion in 1-2 months. No new symptoms. Mood, was on prozac in the past, doesn't feel this is helpful. Does struggle at times to fall asleep at night due to I just can't turn my mind off. 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 No SI or HI. Does have good support from family and Fiance PAST MEDICAL HISTORY Diagnosis Date Concussion 05/2015 volleyball NEGATIVE MEDICAL HISTORY 2012 normal color vision Viral meningitis 2011 [facility] PAST SURGICAL HISTORY Procedure Laterality Date L'SCOPE CHOLECYSTECTOMY N/A 06/22/2022 TONSILLECTOMY & ADENOIDECTOMY <AGE 14 age 5 yrs Social History: Social History Tobacco Use Smoking status: Never Smokeless tobacco: Never Vaping Use Vaping Use: Never used Substance Use Topics Alcohol use: Never Drug use: Never FAMILY HISTORY Problem Relation Age of Onset other (Right bundle Branch Blockage) Mother 44 other (thyroid iqlypbb-bky-dhgjuervf) Mother Lipids Father other (MVP) Father other (right bundle branch block) Father other (thyroid dyxdlfb-mak-kcxkudwil) Father other (cancerous thyroid nodules) Sister thinks entire thyroid was removed No Known Problems Brother No Known Problems Brother Diabetes Maternal Grandmother Lipids Maternal Grandmother Heart Maternal Grandmother [place] Lipids Maternal Grandfather No Known Problems Paternal Grandmother Lipids Paternal Grandfather other (pacemaker) Paternal Grandfather Current Outpatient prescriptions: Drospirenone-Ethinyl Estradiol (MARCIA, 28,) 3-0.02 mg per tablet Take 1 tablet by mouth once daily. omeprazole (PRILOSEC) 20 mg capsule Take 1 capsule by mouth daily before breakfast. 1/2 hr before meal. citalopram hydrobromide (CELEXA) 10 mg tablet Take 1 tablet PO in the evening x 2 weeks, then increase dose to 2 tablets (20 mg) in the evening CHOLESTYRAMINE, BULK, MISC Take by mouth. Cholecalciferol, Vitamin D3, 125 mcg (5,000 unit) cap Take 1 capsule by mouth once daily. Allergies: ALLERGIES Allergen Reactions Seasonal Allergies Other: See Comments Fall and Spring ROS: See HPI PE: 03/14/23 1508 BP: 100/68 Pulse: 76 Resp: 16 Temp: 36.6 C (97.9 F) TempSrc: Right Tympanic Weight: 123.4 kg (272 lb) Height: 167 cm (5' 5.75 ) Gen: A&O, NAD, non-toxic appearing, Pleasant, cooperative HEENT: NT/AC, PERRLA, wearing glasses, EOMs intact b/l, nares clear and patent b/l, pharynx without erythema, exudate or lesions. MMM, Uvula midline. EACs without erythema or debris. TMs pearly montalvo with intact landmarks b/l. Neck: supple, No cervical LAD, no thyromegaly, no carotid bruits CV: RRR, normal S1 and S2, no murmurs, no gallops, no rubs, Pulses 2+ and symmetric in UE and LE b/l Lungs: normal respiratory effort, CTA b/l, no wheezing or rhonchi or rales Abd: soft, mild RUQ AND LUQ soreness without r/r/g, morbidly obese, ND, +BS, no hepatosplenomegaly MS: FROM all 4 extremities Neuro: CN II-XII intact b/l, strength 5/5 b/l UE and LE, DTRs 2/4 UE and LE, sensation intact. Skin: warm, dry, intact, No rashes or lesions on exposed skin. No edema, normal pulses ASSESSMENT/PLAN: 1. Well adult exam - ICD9: V70.0, ICD10: Z00.00 (primary diagnosis) - Counseled on healthy diet and regular exercise - Calcium intake with supplements or by diet of 1000 mg/day for under 50, 0153-0352 mg/day for 50+ - Discussed need and benefit for weight loss. BMI 44.24 kg/(m^2) - VITAMIN D 25 HYDROXY - VITAMIN B12 BLOOD - COMP METABOLIC PANEL - HGB A1C - CELIAC COMPREHENSIVE PANEL - LIPID PANEL, NONFASTING 2. Elevated LFTs - ICD9: 790.6, ICD10: R79.89 F/u with [facility] Villavicencio for opinion, found to have fatty liver changes by RUQ US recently and has been having some upper abdominal pressure/soreness. May need EGD and other testing as d/w her today - COMP METABOLIC PANEL - CELIAC COMPREHENSIVE PANEL 3. RUQ pain - ICD9: 789.01, ICD10: R10.11 F/u with [facility] Villavicencio for opinion, found to have fatty liver changes by RUQ US recently and has been having some upper abdominal pressure/soreness. May need EGD and other testing as d/w her today - COMP METABOLIC PANEL - CELIAC COMPREHENSIVE PANEL 4. Fatty liver - ICD9: 571.8, ICD10: K76.0 F/u with [facility] Villavicencio for opinion, found to have fatty liver changes by RUQ US recently and has been having some upper abdominal pressure/soreness. May need EGD and other testing as d/w her today - LIPID PANEL, NONFASTING 5. DARBY (generalized anxiety disorder) - ICD9: 300.02, ICD10: F41.1 D/c prozac, start on celexa, titrate up medication as below as needed. No SI or HI - CITALOPRAM 10 MG TABLET 6. Obesity, Class III, BMI 40-49.9 (morbid obesity) (HCC) - ICD9: 278.01, ICD10: E66.01 Weight increasing - Behavioral intervention Chetan Lamb DO To ER if develops chest pain, shortness of breath, or severe worsening of symptoms. Discussed risks, benefits, alternatives, and potential side effects of medications. Patient expressed understanding and agreed with the plan. Chetan Lamb DO [address] [place] [address] documented in this encounter [facility] documented as of this encounter (statuses as of 03/21/2023) [facility]07-26-2023 History of Past illness Narrative* Problem Noted Date Diagnosed Date Resolved Date Well adult exam 03/14/2023 03/20/2023 Childhood overweight, BMI 85-94.9 percentile 0 03/20/2023 Body mass index equal to or greater than 95th percentile for age in pediatric patient 10/28/2019 03/20/2023 Low back pain 03/08/2016 03/18/2018 documented as of this encounter (statuses as of 04/04/2023) [facility] History of Past illness Narrative* Problem Noted Date Diagnosed Date Resolved Date Well adult exam 03/14/2023 03/20/2023 Childhood overweight, BMI 85-94.9 percentile 0 03/20/2023 Body mass index equal to or greater than 95th percentile for age in pediatric patient 10/28/2019 03/20/2023 Low back pain 03/08/2016 03/18/2018 documented as of this encounter (statuses as of 04/12/2023) [facility] History of Past illness Narrative* Problem Noted Date Diagnosed Date Resolved Date Well adult exam 03/14/2023 03/20/2023 Childhood overweight, BMI 85-94.9 percentile 0 03/20/2023 Body mass index equal to or greater than 95th percentile for age in pediatric patient 10/28/2019 03/20/2023 Low back pain 03/08/2016 03/18/2018 documented as of this encounter (statuses as of 07/31/2023) [facility]07-05-2023 Miscellaneous Notes* Telephone Encounter - Maryam Cueto RN - 02/21/2023 10:13 AM EDT Annual now scheduled for 03/13/23. Requested Prescriptions Pending Prescriptions Disp Refills Drospirenone-Ethinyl Estradiol (MARCIA, 28,) 3-0.02 mg per tablet 28 tablet 0 Sig: Take 1 tablet by mouth once daily. Maryam Cueto RN * Telephone Encounter - Nathalia Copeland LPN - 02/21/2023 9:10 AM EDT Please see pt's mychart refill request. Pt has not been seen in the office since 07/25/21. Mychart message letting pt know that she will need to be seen in the office and that only enough medication will be sent to her pharmacy until she is seen. Nathalia Copeland LPN [facility] Miscellaneous Notes* Telephone Encounter - María Leyva RN - 12/26/2022 11:09 AM EDT Patient called and notified of results. Patient verbalizes understanding with no further questions. María Leyva RN * Telephone Encounter - Noreen London APRN.LEW - 12/26/2022 10:55 AM EDT Please let patient know her ultrasound is normal. [facility] NoteHNO ID: [id number] Author: Alissa Soler RDMS Service: ? Author Type: Sprayer Machine Type: Progress Notes Filed: 12/25/2022 12:08 PM Note Text: Radiology Service Progress Note PATIENT NAME: Terrie Rubio DATE OF SERVICE: December 25, 2022 TIME: 12:07 PM PATIENT IDENTITY VERIFICATION COMPLETED USING TWO (2) IDENTIFIERS: Name and Date of confirmed by patient verbally. FALL SCREENING: Has the patient had 2 falls in the last year or 1 fall with injury or currently using an Ambulatory Assistive Device (Walker, Cane, Wheelchair, Crutches, etc.)? No PATIENT GENDER DATA: Female. status: : No status: NO. PATIENT RELEVANT IMPLANT DATA REVIEWED: Not Applicable RADIOLOGY DEPARTMENT: Ultrasound PERIPHERAL IV DATA: Not applicable SIGNED BY: Alissa Soler RDMS December 25, 2022 12:07 [facility]05-08-2023 Miscellaneous Notes* Telephone Encounter - Jennifer Bolden Cma - 12/25/2022 9:41 AM EDT [employer] message sent to patient Jennifer Bolden Javon * Telephone Encounter - Noreen London APRN.CNP - 12/25/2022 8:43 AM EDT Please let patient know her labs are normal. [facility]23 NoteHNO ID: [id number] Author: Noreen London APRN.CNP Service: ? Author Type: Nurse Practitioner Type: Progress Notes Filed: 12/22/2022 2:38 PM Note Text: Chief Complaint Patient presents with: Abdominal Pain HPI Terrie Rubio is a 22 year old female who presents here today for Above Complaints.. Patient presents with RUQ pain. Patient had her gall bladder removed 6 months ago and has recovered however she is experiencing RUQ pain that is similar to the pain she was having prior to having gallbladder out. This has been occurring for the past few weeks. Patient reports no nausea but reports diarrhea and constipation. Patient reports pain is worse after eating. Past medical history, appointments, medications, allergies reviewed. Previous Medical History PAST MEDICAL HISTORY Diagnosis Date Concussion 05/2015 volleyball NEGATIVE MEDICAL HISTORY 2012 normal color vision Viral meningitis 2011 [facility] Previous Surgical History PAST SURGICAL HISTORY Procedure Laterality Date TONSILLECTOMY AND ADENOIDECTOMY age 5 yrs Family History FAMILY HISTORY Problem Relation Age of Onset other (Right bundle Branch Blockage) Mother 44 other (thyroid batdxvo-qvh-sqkwvhzul) Mother Lipids Father other (MVP) Father other (right bundle branch block) Father other (thyroid ecpwvlo-cug-nzuwnvedb) Father other (cancerous thyroid nodules) Sister thinks entire thyroid was removed No Known Problems Brother No Known Problems Brother Diabetes Maternal Grandmother Lipids Maternal Grandmother Heart Maternal Grandmother [place] Lipids Maternal Grandfather No Known Problems Paternal Grandmother Lipids Paternal Grandfather other (pacemaker) Paternal Grandfather Patient Allergies ALLERGIES Allergen Reactions Seasonal Allergies Other: See Comments Fall and Spring Current Medications Current Outpatient Medications on File Prior to Visit Medication Sig CHOLESTYRAMINE, BULK, MISC Take by mouth. omeprazole (PRILOSEC) 20 mg capsule Take 1 capsule by mouth daily before breakfast. 1/2 hr before meal. FLUoxetine (PROZAC) 10 mg capsule Take 1 capsule by mouth once daily. Drospirenone-Ethinyl Estradiol (MARCIA, 28,) 3-0.02 mg per tablet Take 1 tablet by mouth once daily. Cholecalciferol, Vitamin D3, 125 mcg (5,000 unit) cap Take 1 capsule by mouth once daily. No current facility-administered medications on file prior to visit. Social History Social History Tobacco Use Smoking status: Never Smokeless tobacco: Never Vaping Use Vaping Use: Never used Substance Use Topics Alcohol use: Never Drug use: Never Review of Symptoms REVIEW OF SYSTEMS SEE HPI EXAM: BP 120/74 Pulse 88 Resp 16 Wt 126.1 kg (278 lb) LMP 07/14/2021 General Appearance: Well appearing, alert, in no acute distress, well-hydrated, well nourished.. Abdomen: Normal abdominal exam, Abdomen soft, non-tender. Bowel sounds normal. No masses, organomegaly. Health Maintenance List MENINGOCOCCAL B: Consider based on risk(1 of 2 - Risk Bexsero 2-dose series) Never done GC (GONORRHEA) SCREENING (18-24) Never done HEPATITIS C SCREENING Never done HIV SCREENING Never done CHLAMYDIA SCREENING (18-24) Never done COVID-19 VACCINE(3 - Booster for Pfizer series) due on 04/13/2021 DEPRESSION ASSESSMENT Never done DTAP,TDAP,TD(7 - Td or Tdap) due on 03/21/2023 INFLUENZA(Season Ended) due on 04/20/2023 HEPATITIS B Completed HPV VACCINE Completed ASSESSMENT/PLAN: 1. RUQ pain - ICD9: 789.01, ICD10: R10.11 Differential Diagnosis includes unclear etiology as patient has had her gall bladder removed - Labs of CBC with Diff, CMP, Amylase, and Lipase - Work up with RUQ ultrasound - CBC + DIFF - COMP METABOLIC PANEL - LIPASE BLD - AMYLASE BLD - US ABD RIGHT UPPER QUADRANT Noreen London APRN.[facility]05-05-2023 History of Present illness Narrative* Noreen London APRN.[employer] TECHNICIAN - 12/22/2022 2:31 PM EDT Chief Complaint Patient presents with: Abdominal Pain HPI Terrie Rubio is a 22 year old female who presents here today for Above Complaints.. Patient presents with RUQ pain. Patient had her gall bladder removed 6 months ago and has recoveredhowever she is experiencing RUQ pain that is similar to the pain she was having prior to having gallbladder out. This has been occurring for the past few weeks. Patient reports no nausea but reports diarrhea and constipation. Patient reports pain is worse after eating. Past medical history, appointments, medications, allergies reviewed. Previous Medical History PAST MEDICAL HISTORY Diagnosis Date Concussion 05/2015 volleyball NEGATIVE MEDICAL HISTORY 2012 normal color vision Viral meningitis 2010 [facility] Previous Surgical History PAST SURGICAL HISTORY Procedure Laterality Date TONSILLECTOMY & ADENOIDECTOMY <AGE 14 age 5 yrs Family History FAMILY HISTORY Problem Relation Age of Onset other (Right bundle Branch Blockage) Mother 44 other (thyroid pytavax-zri-jdliysspz) Mother Lipids Father other (MVP) Father other (right bundle branch block) Father other (thyroid ambhpmp-gdn-qtzkitqvv) Father other (cancerous thyroid nodules) Sister thinks entire thyroid was removed No Known Problems Brother No Known Problems Brother Diabetes Maternal Grandmother Lipids Maternal Grandmother Heart Maternal Grandmother [place] Lipids Maternal Grandfather No Known Problems Paternal Grandmother Lipids Paternal Grandfather other (pacemaker) Paternal Grandfather Patient Allergies ALLERGIES Allergen Reactions Seasonal Allergies Other: See Comments Fall and Spring Current Medications Current Outpatient Medications on File Prior to Visit Medication Sig CHOLESTYRAMINE, BULK, MISC Take by mouth. omeprazole (PRILOSEC) 20 mg capsule Take 1 capsule by mouth daily before breakfast. 1/2 hr before meal. FLUoxetine (PROZAC) 10 mg capsule Take 1 capsule by mouth once daily. Drospirenone-Ethinyl Estradiol (MARCIA, 28,) 3-0.02 mg per tablet Take 1 tablet by mouth once daily. Cholecalciferol, Vitamin D3, 125 mcg (5,000 unit) cap Take 1 capsule by mouth once daily. No current facility-administered medications on file prior to visit. Social History Social History Tobacco Use Smoking status: Never Smokeless tobacco: Never Vaping Use Vaping Use: Never used Substance Use Topics Alcohol use: Never Drug use: Never Review of Symptoms REVIEW OF SYSTEMS SEE HPI EXAM: BP 120/74 Pulse 88 Resp 16 Wt 126.1 kg (278 lb) LMP 07/14/2021 General Appearance: Well appearing, alert, in no acute distress, well-hydrated, well nourished.. Abdomen: Normal abdominal exam, Abdomen soft, non-tender. Bowel sounds normal. No masses, organomegaly. Health Maintenance List MENINGOCOCCAL B: Consider based on risk(1 of 2 - Risk Bexsero 2-dose series) Never done GC (GONORRHEA) SCREENING (18-) Never done HEPATITIS C SCREENING Never done HIV SCREENING Never done CHLAMYDIA SCREENING (18-) Never done COVID-19 VACCINE(3 - Booster for Pfizer series) due on 04/13/2021 DEPRESSION ASSESSMENT Never done DTAP,TDAP,TD(7 - Td or Tdap) due on 03/21/2023 INFLUENZA(Season Ended) due on 04/20/2023 HEPATITIS B Completed HPV VACCINE Completed ASSESSMENT/PLAN: 1. RUQ pain - ICD9: 789.01, ICD10: R10.11 Differential Diagnosis includes unclear etiology as patient has had her gall bladder removed - Labs of CBC with Diff, CMP, Amylase, and Lipase - Work up with RUQ ultrasound - CBC + DIFF - COMP METABOLIC PANEL - LIPASE BLD - AMYLASE BLD - US ABD RIGHT UPPER QUADRANT Noreen London APRN.LEW [facility] Miscellaneous Notes* Telephone Encounter - Erica Villaseñor Ma - 12/18/2022 9:31 AM EDT See update from pt regarding appt scheduled on 12/22/22 at 2:40 pm. Erica Villaseñor Ma * Telephone Encounter - Erica Villaseñor Ma - 12/18/2022 8:47 AM EDT Offered appt with RS on 12/22/22 at 2:40 pm. Wait pt response. Erica Villaseñor Ma documented in this encounterDel[facility]01-05-2023 NoteHNO ID: [id number] Author: Marcia Perry APRN.[employer] TECHNICIAN Service: ? Author Type: Nurse Practitioner Type: Progress Notes Filed: 08/28/2022 4:07 PM Note Text: Chief Complaint Patient presents with: Ear Pain: Right x 1 week Nausea HPI Terrie Rubio is a 22 year old female who presents here today for Above Complaints.. Today: Right ear-intermittently for a while, but more persistent for the past week. Having stabbing pain shooting through it, pressure all the time. No drainage. Tylenol has been a little bit helpful. Nausea-started a couple days ago. No vomiting or diarrhea, no abdominal pain. No change in bowel or bladder patterns. Is still eating-it does make the nausea a little bit better. Appetite is somewhat decreased, but not having to force herself. Is intermittent. Denies chance of as she does take OCP but is sexually active. Has very irregular menstrual cycles due to medication, not sure when last was. Does have some heartburn that comes and goes, cannot pinpoint any specific activity or food that brings this on. Past medical history, appointments, medications, allergies reviewed. Previous Medical History PAST MEDICAL HISTORY Diagnosis Date Concussion 05/2015 volleyball NEGATIVE MEDICAL HISTORY 2012 normal color vision Viral meningitis 2010 [facility] Previous Surgical History PAST SURGICAL HISTORY Procedure Laterality Date TONSILLECTOMY AND ADENOIDECTOMY age 5 yrs Family History FAMILY HISTORY Problem Relation Age of Onset other (Right bundle Branch Blockage) Mother 44 other (thyroid ayymhlc-ksj-erpfgzqbb) Mother Lipids Father other (MVP) Father other (right bundle branch block) Father other (thyroid vefkzuf-oxa-zuztghisq) Father other (cancerous thyroid nodules) Sister thinks entire thyroid was removed No Known Problems Brother No Known Problems Brother Diabetes Maternal Grandmother Lipids Maternal Grandmother Heart Maternal Grandmother [place] Lipids Maternal Grandfather No Known Problems Paternal Grandmother Lipids Paternal Grandfather other (pacemaker) Paternal Grandfather Patient Allergies ALLERGIES Allergen Reactions Seasonal Allergies Other: See Comments Fall and Spring Current Medications Current Outpatient Medications on File Prior to Visit Medication Sig CHOLESTYRAMINE, BULK, MISC Take by mouth. FLUoxetine (PROZAC) 10 mg capsule Take 1 capsule by mouth once daily. Drospirenone-Ethinyl Estradiol (MARCIA, 28,) 3-0.02 mg per tablet Take 1 tablet by mouth once daily. omeprazole (PRILOSEC) 20 mg capsule Take 1 capsule by mouth daily before breakfast. 1/2 hr before meal. methylphenidate ER 27 mg tablet Take 1 tablet by mouth once daily for 30 days. Cholecalciferol, Vitamin D3, 125 mcg (5,000 unit) cap Take 1 capsule by mouth once daily. No current facility-administered medications on file prior to visit. Social History Social History Tobacco Use Smoking status: Never Smokeless tobacco: Never Vaping Use Vaping Use: Never used Substance Use Topics Alcohol use: Never Drug use: Never Review of Symptoms REVIEW OF SYSTEMS See HPI, otherwise negative EXAM: BP 120/84 (BP Site: Left Arm, BP Position: Sitting, BP Cuff Size: Regular Adult) Pulse 80 Resp 16 Wt 123.2 kg (271 lb 9.6 oz) LMP 07/14/2021 SpO2 96% General Appearance: Well appearing, alert, in no acute distress, well-hydrated, well nourished. and Morbidly obese. Ears: External ears normal, canals clear. Oropharynx: Lips, mucosa, and tongue normal, teeth and gums normal, oropharynx normal. Lungs: Lungs clear to auscultation. No wheezing, rhonchi, rales.. Heart: RRR without murmur, gallop, or rubs. No ectopy. Abdomen: Normal abdominal exam, Abdomen soft, non-tender. Bowel sounds normal. No masses, organomegaly. Health Maintenance List MENINGOCOCCAL B: Consider based on risk(1 of 2 - Risk Bexsero 2-dose series) Never done GC (GONORRHEA) SCREENING (18-24) Never done HEPATITIS C SCREENING Never done HIV SCREENING Never done CHLAMYDIA SCREENING (18-24) Never done COVID-19 VACCINE(3 - Booster for Pfizer series) due on 04/13/2021 INFLUENZA(1) due on 04/20/2022 DEPRESSION ASSESSMENT Never done DTAP,TDAP,TD(7 - Td or Tdap) due on 03/21/2023 HEPATITIS B Completed HPV VACCINE Completed Data reviewed Previous records, office notes ASSESSMENT/PLAN: 1. Nausea - ICD9: 787.02, ICD10: R11.0 (primary diagnosis) HCG and urinalysis both negative. Suspect cause of nausea is GERD which is in patient's hx and she stopped taking her omeprazole. Will restart the omeprazole. - HCG QUAL UR B/O - URINALYSIS WITH MICROSCOPIC, REFLEX CULTURE - OMEPRAZOLE 20 MG CAPSULE,DELAYED RELEASE 2. Gastroesophageal reflux disease, unspecified whether esophagitis present - ICD9: 530.81, ICD10: K21.9 HCG and urinalysis both negative. Suspect cause of nausea is GERD which is in patient's hx and she stopped taking (more content not included)...[facility]01-05-[facility] History of Present illness Narrative* Marcia Perry, SALES OUTFITTER.[employer] SERV[employer] POULTRY TECHNICIAN - 08/24/2022 2:36 PM EST Chief Complaint Patient presents with: Ear Pain: Right x 1 week Nausea HPI Terrie Rubio is a 22 year old female who presents here today for Above Complaints.. Today: Right ear-intermittently for a while, but more persistent for the past week. Having stabbing pain shooting through it, pressure all the time. No drainage. Tylenol has been a little bit helpful. Nausea-started a couple days ago. No vomiting or diarrhea, no abdominal pain. No change in bowel orbladder patterns. Is still eating-it does make the nausea a little bit better. Appetite is somewhatdecreased, but not having to force herself. Is intermittent. Denies chance of as she doestake OCP but is sexually active. Has very irregular menstrual cycles due to medication, not sure when last was. Does have some heartburn that comes and goes, cannot pinpoint any specific activity or food that brings this on. Past medical history, appointments, medications, allergies reviewed. Previous Medical History PAST MEDICAL HISTORY Diagnosis Date Concussion 05/2015 volleyball NEGATIVE MEDICAL HISTORY 2012 normal color vision Viral meningitis 2011 [facility] Previous Surgical History PAST SURGICAL HISTORY Procedure Laterality Date TONSILLECTOMY & ADENOIDECTOMY <AGE 14 age 5 yrs Family History FAMILY HISTORY Problem Relation Age of Onset other (Right bundle Branch Blockage) Mother 44 other (thyroid tjrazxr-hmb-yihydjskb) Mother Lipids Father other (MVP) Father other (right bundle branch block) Father other (thyroid umqqdgr-rgp-lhedobkro) Father other (cancerous thyroid nodules) Sister thinks entire thyroid was removed No Known Problems Brother No Known Problems Brother Diabetes Maternal Grandmother Lipids Maternal Grandmother Heart Maternal Grandmother [place] Lipids Maternal Grandfather No Known Problems Paternal Grandmother Lipids Paternal Grandfather other (pacemaker) Paternal Grandfather Patient Allergies ALLERGIES Allergen Reactions Seasonal Allergies Other: See Comments Fall and Spring Current Medications Current Outpatient Medications on File Prior to Visit Medication Sig CHOLESTYRAMINE, BULK, MISC Take by mouth. FLUoxetine (PROZAC) 10 mg capsule Take 1 capsule by mouth once daily. Drospirenone-Ethinyl Estradiol (MARCIA, 28,) 3-0.02 mg per tablet Take 1 tablet by mouth once daily. omeprazole (PRILOSEC) 20 mg capsule Take 1 capsule by mouth daily before breakfast. 1/2 hr before meal. methylphenidate ER 27 mg tablet Take 1 tablet by mouth once daily for 30 days. Cholecalciferol, Vitamin D3, 125 mcg (5,000 unit) cap Take 1 capsule by mouth once daily. No current facility-administered medications on file prior to visit. Social History Social History Tobacco Use Smoking status: Never Smokeless tobacco: Never Vaping Use Vaping Use: Never used Substance Use Topics Alcohol use: Never Drug use: Never Review of Symptoms REVIEW OF SYSTEMS See HPI, otherwise negative EXAM: BP 120/84 (BP Site: Left Arm, BP Position: Sitting, BP Cuff Size: Regular Adult) Pulse 80 Resp 16 Wt 123.2 kg (271 lb 9.6 oz) LMP 07/14/2021 SpO2 96% General Appearance: Well appearing, alert, in no acute distress, well-hydrated, well nourished. andMorbidly obese. Ears: External ears normal, canals clear. Oropharynx: Lips, mucosa, and tongue normal, teeth and gums normal, oropharynx normal. Lungs: Lungs clear to auscultation. No wheezing, rhonchi, rales.. Heart: RRR without murmur, gallop, or rubs. No ectopy. Abdomen: Normal abdominal exam, Abdomen soft, non-tender. Bowel sounds normal. No masses, organomegaly. Health Maintenance List MENINGOCOCCAL B: Consider based on risk(1 of 2 - Risk Bexsero 2-dose series) Never done GC (GONORRHEA) SCREENING (18-24) Never done HEPATITIS C SCREENING Never done HIV SCREENING Never done CHLAMYDIA SCREENING (18-24) Never done COVID-19 VACCINE(3 - Booster for Pfizer series) due on 04/13/2021 INFLUENZA(1) due on 04/20/2022 DEPRESSION ASSESSMENT Never done DTAP,TDAP,TD(7 - Td or Tdap) due on 03/21/2023 HEPATITIS B Completed HPV VACCINE Completed Data reviewed Previous records, office notes ASSESSMENT/PLAN: 1. Nausea - ICD9: 787.02, ICD10: R11.0 (primary diagnosis) HCG and urinalysis both negative. Suspect cause of nausea is GERD which is in patient's hx and she stopped taking her omeprazole. Will restart the omeprazole. - HCG QUAL UR B/O - URINALYSIS WITH MICROSCOPIC, REFLEX CULTURE - OMEPRAZOLE 20 MG CAPSULE,DELAYED RELEASE 2. Gastroesophageal reflux disease, unspecified whether esophagitis present - ICD9: 530.81, ICD10: K21.9 HCG and urinalysis both negative. Suspect cause of nausea is GERD which is in patient's hx and she stopped taking her omeprazole. Will restart the omeprazole. - HCG QUAL UR B/O - URINALYSIS WITH MICROSCOPIC, REFLEX CULTURE - OMEPRAZOLE 20 MG CAPSULE,DELAYED RELEASE 3. Right ear pain - ICD9: 388.70, ICD10: H92.01 Given persistent ear pain despite negative assessment, will tx for ear infection. - AMOXICILLIN 875 MG TABLET Marcia Perry APRN.CNP documented in [facility] encounterDel[facility]12-16-2022 Miscellaneous Notes* Telephone Encounter - Stacey Graff Ma - 08/04/2022 10:03 AM EST Pt informed via phone call Stacey Graff Ma * Telephone Encounter - Marcia Perry APRN.CNP - 08/04/2022 9:53 AM EST I wouldn't say I specifically would expect her to have this upper left abdominal pain as a result of the surgery. She can contact her surgeon for their opinion as well. Marcia Perry APRN.LEW documented in this encounterDel[facility]10-31-2022 Miscellaneous Notes* Telephone Encounter - Megan Beauchamp MA - 06/19/2022 11:55 AM EDT Patient has been identified by name and date of : Yes Requested Prescriptions Pending Prescriptions Disp Refills FLUoxetine (PROZAC) 10 mg capsule 30 capsule 1 Sig: Take 1 capsule by mouth once daily. RX INSTRUCTIONS: Patient aware RX will be sent to pharmacy. No need to notify patient. Megan Beauchamp MA Miguelangel: 02/2022 No appointment scheduled Last refill: 05/2022 Has 1 additional refill documented in this encounterDelaware [facility] Hospital10-24-2022 Miscellaneous Notes* Telephone Encounter - Allie Stevens LPN - 06/12/2022 3:08 PM EDT Miguelangel--06/01/22 Nov--nothing scheduled Last refill--05/08/22 30 with 1 refill Last labs--10/08/21 documented in this encounterDelaware [facility] Hospital10-13-2022 NoteHNO ID: [id number] Author: Marcia Perry APRN.LEW Service: ? Author Type: Nurse Practitioner Type: Progress Notes Filed: 06/01/2022 3:51 PM Note Text: Chief Complaint Patient presents with: Nail Check: Left pointer finger, brown coloring under nail HPI Terrie Rubio is a 22 year old female who presents here today for Above Complaints. Today: Two weeks ago was using a small kitchen knife to cut the plastic off a chapstick lid. She poked it just a bit into the nail bed of her left pointer finger. IN 2019 when she was in college, had a traumatic experience. After that was having panic attacks at least weekly. This went away. Just came back yesterday afternoon. To feel better she typically lays down and this helps things feel better. Chest tight, occasional palpitations. Unable to identify a trigger. Past medical history, appointments, medications, allergies reviewed. Previous Medical History PAST MEDICAL HISTORY Diagnosis Date Concussion 05/2015 volleyball NEGATIVE MEDICAL HISTORY 2012 normal color vision Viral meningitis 2011 [facility] Previous Surgical History PAST SURGICAL HISTORY Procedure Laterality Date TONSILLECTOMY AND ADENOIDECTOMY age 5 yrs Family History FAMILY HISTORY Problem Relation Age of Onset other (Right bundle Branch Blockage) Mother 44 other (thyroid ptmcjbv-iea-pbkncdtxl) Mother Lipids Father other (MVP) Father other (right bundle branch block) Father other (thyroid kuuiapo-mde-romouskyo) Father other (cancerous thyroid nodules) Sister thinks entire thyroid was removed No Known Problems Brother No Known Problems Brother Diabetes Maternal Grandmother Lipids Maternal Grandmother Heart Maternal Grandmother [place] Lipids Maternal Grandfather No Known Problems Paternal Grandmother Lipids Paternal Grandfather other (pacemaker) Paternal Grandfather Patient Allergies ALLERGIES Allergen Reactions Seasonal Allergies Other: See Comments Fall and Spring Current Medications Current Outpatient Medications on File Prior to Visit Medication Sig FLUoxetine (PROZAC) 10 mg capsule Take 1 capsule by mouth once daily. omeprazole (PRILOSEC) 20 mg capsule Take 1 capsule by mouth daily before breakfast. 1/2 hr before meal. Drospirenone-Ethinyl Estradiol (MARCIA, 28,) 3-0.02 mg per tablet Take 1 tablet by mouth once daily. methylphenidate ER 27 mg tablet Take 1 tablet by mouth once daily for 30 days. Cholecalciferol, Vitamin D3, 125 mcg (5,000 unit) cap Take 1 capsule by mouth once daily. No current facility-administered medications on file prior to visit. Social History Social History Tobacco Use Smoking status: Never Smokeless tobacco: Never Vaping Use Vaping Use: Never used Substance Use Topics Alcohol use: Never Drug use: Never Review of Symptoms REVIEW OF SYSTEMS See HPI, otherwise negative EXAM: BP 118/78 (BP Site: Left Arm, BP Position: Sitting, BP Cuff Size: Regular Adult) Pulse 70 Resp 16 Wt 120.9 kg (266 lb 9.6 oz) LMP 07/14/2021 SpO2 97% General Appearance: Well appearing, alert, in no acute distress, well-hydrated, well nourished.. Lungs: Lungs clear to auscultation. No wheezing, rhonchi, rales.. Heart: RRR without murmur, gallop, or rubs. No ectopy. Musculoskeletal: pinpoint brown area to left first finger nailbed. Health Maintenance List MENINGOCOCCAL B: Consider based on risk(1 of 2 - Risk Bexsero 2-dose series) Never done GC (GONORRHEA) SCREENING (18-24) Never done HEPATITIS C SCREENING Never done HIV SCREENING Never done CHLAMYDIA SCREENING (18-24) Never done COVID-19 VACCINE(3 - Booster for Pfizer series) due on 04/13/2021 DEPRESSION ASSESSMENT Never done INFLUENZA(1) due on 04/20/2022 DTAP,TDAP,TD(7 - Td or Tdap) due on 03/21/2023 HEPATITIS B Completed HPV VACCINE Completed Data reviewed Previous records, office notes ASSESSMENT/PLAN: 1. Injury of nail bed of finger of left hand, initial encounter - ICD9: 959.5, ICD10: S69.92XA (primary diagnosis) Minor previous trauma identified, no other intervention necessary. 2. Anxiety attack - ICD9: 300.01, ICD10: F41.0 Continue with current interventions. Will speak with siblings regarding their anxiety and medications. May be interested in prn medication, as these episodes are infrequent. Marcia Perry APRN.[facility]10-13-[facility]22 History of Present illness Narrative* Marcia Perry APRN.LEW - 06/01/2022 3:24 PM EDT Chief Complaint Patient presents with: Nail Check: Left pointer finger, brown coloring under nail HPI Terrie Rubio is a 22 year old female who presents here today for Above Complaints. Today: Two weeks ago was using a small kitchen knife to cut the plastic off a chapstick lid. She poked it just a bit into the nail bed of her left pointer finger. IN 2019 when she was in college, had a traumatic experience. After that was having panic attacks atleast weekly. This went away. Just came back yesterday afternoon. To feel better she typically laysdown and this helps things feel better. Chest tight, occasional palpitations. Unable to identify a trigger. Past medical history, appointments, medications, allergies reviewed. Previous Medical History PAST MEDICAL HISTORY Diagnosis Date Concussion 05/2015 volleyball NEGATIVE MEDICAL HISTORY 2012 normal color vision Viral meningitis 2011 [facility] Previous Surgical History PAST SURGICAL HISTORY Procedure Laterality Date TONSILLECTOMY & ADENOIDECTOMY <AGE 14 age 5 yrs Family History FAMILY HISTORY Problem Relation Age of Onset other (Right bundle Branch Blockage) Mother 44 other (thyroid lsmzxce-pky-lehssppss) Mother Lipids Father other (MVP) Father other (right bundle branch block) Father other (thyroid nayptbp-ayi-yfpihiyvr) Father other (cancerous thyroid nodules) Sister thinks entire thyroid was removed No Known Problems Brother No Known Problems Brother Diabetes Maternal Grandmother Lipids Maternal Grandmother Heart Maternal Grandmother [place] Lipids Maternal Grandfather No Known Problems Paternal Grandmother Lipids Paternal Grandfather other (pacemaker) Paternal Grandfather Patient Allergies ALLERGIES Allergen Reactions Seasonal Allergies Other: See Comments Fall and Spring Current Medications Current Outpatient Medications on File Prior to Visit Medication Sig FLUoxetine (PROZAC) 10 mg capsule Take 1 capsule by mouth once daily. omeprazole (PRILOSEC) 20 mg capsule Take 1 capsule by mouth daily before breakfast. 1/2 hr before meal. Drospirenone-Ethinyl Estradiol (MARCIA, 28,) 3-0.02 mg per tablet Take 1 tablet by mouth once daily. methylphenidate ER 27 mg tablet Take 1 tablet by mouth once daily for 30 days. Cholecalciferol, Vitamin D3, 125 mcg (5,000 unit) cap Take 1 capsule by mouth once daily. No current facility-administered medications on file prior to visit. Social History Social History Tobacco Use Smoking status: Never Smokeless tobacco: Never Vaping Use Vaping Use: Never used Substance Use Topics Alcohol use: Never Drug use: Never Review of Symptoms REVIEW OF SYSTEMS See HPI, otherwise negative EXAM: BP 118/78 (BP Site: Left Arm, BP Position: Sitting, BP Cuff Size: Regular Adult) Pulse 70 Resp 16 Wt 120.9 kg (266 lb 9.6 oz) LMP 07/14/2021 SpO2 97% General Appearance: Well appearing, alert, in no acute distress, well-hydrated, well nourished.. Lungs: Lungs clear to auscultation. No wheezing, rhonchi, rales.. Heart: RRR without murmur, gallop, or rubs. No ectopy. Musculoskeletal: pinpoint brown area to left first finger nailbed. Health Maintenance List MENINGOCOCCAL B: Consider based on risk(1 of 2 - Risk Bexsero 2-dose series) Never done GC (GONORRHEA) SCREENING (18-24) Never done HEPATITIS C SCREENING Never done HIV SCREENING Never done CHLAMYDIA SCREENING (18-24) Never done COVID-19 VACCINE(3 - Booster for Pfizer series) due on 04/13/2021 DEPRESSION ASSESSMENT Never done INFLUENZA(1) due on 04/20/2022 DTAP,TDAP,TD(7 - Td or Tdap) due on 03/21/2023 HEPATITIS B Completed HPV VACCINE Completed Data reviewed Previous records, office notes ASSESSMENT/PLAN: 1. Injury of nail bed of finger of left hand, initial encounter - ICD9: 959.5, ICD10: S69.92XA (primary diagnosis) Minor previous trauma identified, no other intervention necessary. 2. Anxiety attack - ICD9: 300.01, ICD10: F41.0 Continue with current interventions. Will speak with siblings regarding their anxiety and medications. May be interested in prn medication, as these episodes are infrequent. Marcia Perry APRN.[employer] SERVICE POULTRY TECHNICIAN documented in this encounterDelaware [facility] Hospital10-10-2022 Miscellaneous Notes* Telephone Encounter - LUL Prasad - 05/29/2022 11:39 AM EDT CD/report READY FOR CLINICAL ACADEMIC ALLERGIST AT [facility] [place] RAD[facility]OLOG[facility] * Telephone Encounter - Aniyah Burns - 05/29/2022 9:38 AM EDT Pt needs disc copy and reports of gallbladder test on 05/12/22 and US abd on 05/09/22 documented in [facility] encounter[facility]22 Miscellaneous Notes* Telephone Encounter - Stacey Graff Ma - 05/25/2022 12:57 PM EDT Pt informed via mychart Stacey Graff Ma * Telephone Encounter - Marcia Perry APRN.CNP - 05/25/2022 11:11 AM EDT Let's start with some Prozac daily. We can follow up in 4-6 weeks to see how this is working for her. The following approved medication requests have been transmitted electronically. Requested Prescriptions Signed Prescriptions Disp Refills FLUoxetine (PROZAC) 10 mg capsule 30 capsule 1 Sig: Take 1 capsule by mouth once daily. Marcia Perry APRN.CNP * Telephone Encounter - Erica Villaseñor Ma - 05/25/2022 10:31 AM EDT Sent [employer] message to pt with information below from Provider. Notified pt to respond to message and update office. Wait pt response. Erica Villaseñor Ma * Telephone Encounter - Marcia Perry APRN.CNP - 05/25/2022 9:26 AM EDT We can either look at increasing the methylphenidate dose or starting an anxiety medication. If shewould like to go the anxiety medication route, has she ever taken something for this in the past? And if so, has it worked well for her? Marcia Perry APRN.CNP * Telephone Encounter - Erica Villaseñor Ma - 05/25/2022 9:11 AM EDT See pt message, do you want an appt? Erica Villaseñor Ma documented in [facility] encounterDel[facility]09-23-2022 Miscellaneous Notes* Telephone Encounter - Stacey Graff Ma - 05/12/2022 1:45 PM EDT Pt informed, verbalized understanding. Please assist with scheduling appt with general surgery Stacey Graff Ma * Telephone Encounter - Marcia Perry APRN.CNP - 05/12/2022 1:23 PM EDT Please let Terrie know that I received her gallbladder scan results, which show possible chronic inflammation of her gallbladder. I would like her to see general surgery for their opinion. Marcia Perry APRN.CNP documented in this encounterDelaware [facility] Hospital09-23-2022 NoteHNO ID: [id number] Author: RT Jono(R) Service: Nuclear Medicine Author Type: Technologist Type: Progress Notes Filed: 05/12/2022 12:34 PM Note Text: RADIOLOGY SERVICE PROGRESS NOTE SERVICE DATE: 05/12/2022 SERVICE TIME: 10:01 AM PATIENT IDENTITY VERIFICATION COMPLETED USING TWO (2) STANDARD IDENTIFIERS: Name and Date of confirmed by patient verbally FALL SCREENING: Has the patient had 2 falls in the last year or 1 fall with injury or currently using an Ambulatory Assistive Device (Walker, Cane, Wheelchair, Crutches, etc.)? No PATIENT GENDER DATA: .female : No status: No ALLERGIES: Reviewed and unchanged MEDICATIONS REVIEWED: No PATIENT RELEVANT IMPLANT DATA REVIEWED: Not Applicable CREATININE: Creatinine Date Value Ref Range Status 10/08/2021 0.74 0.58 - 0.96 mg/dL Final 12/06/2020 0.75 0.58 - 0.96 mg/dL Final eGFR-All Other Races Date Value Ref Range Status 10/08/2021 >60 . Final Comment: eGFR (Estimated GFR) Units of measure: mL/min/1.73 meters squared eGFR is derived from the reexpressed MDRD Study equation using the following parameters: serum creatinine, age, gender and race. The creatinine assay has been calibrated to be traceable to IDMS. An eGFR <60 mL/min/1.73m2 for >3 months is consistent with chronic kidney disease. Refer to KDOQI guidelines for clinical interpretation. In patients with unstable renal function, e.g. those with acute kidney injury, the eGFR may not accurately reflect actual GFR. Note: On 10/15/2021, the eGFR calculation will be updated to the NKF-ASN Task Force recommended 2020 CKD-EPI creatinine equation which does not include a race variable. For more information or to access a 2020 CKD-EPI calculator, visit the National Kidney Foundation website at kidney.org/professionals/kdoqi/gfr_calculator. eGFR- Date Value Ref Range Status 10/08/2021 >60 Final P.O.C.T. RESULTS: N/A May 12, [address] PERFORMED: No IV SITE: Ambulatory: A peripheral IV was started in the Right antecubital site with a Angio cath: 24 gauge. POST EXAM PIV STATUS: Discontinued PROCEDURE TYPE: NM INJECT: Hepatobiliary with Gallbladder EF. 5.6 mCi Tc99m CHOLETEC. No other medications given.. NO GALLBLADDER VISUALIZED AFTER 2 HOURS OF IMAGING POST INJECTION OF CHOLETEC. ADMINISTRATION TIME: 09:50 PATIENT DISCHARGED TO: Ambulatory patient, left NM department area. A Diagnostic radioactive procedure has taken place, with no further precautions necessary other than routine body substance precautions. More information regarding radiation safety can be found using this link: [email or web address] SIGNATURE: MILTON De La Cruz PATIENT NAME: Terrie Rubio DATE: May 12, 2022 TIME: 10:01 AM PAGER[facility]CONTACT [facility] History of Present illness Narrative* RT Jono(R) - 05/12/2022 9:30 AM EDT RADIOLOGY SERVICE PROGRESS NOTE SERVICE DATE: 05/12/2022 SERVICE TIME: 10:01 AM PATIENT IDENTITY VERIFICATION COMPLETED USING TWO (2) STANDARD IDENTIFIERS: Name and Date of confirmed by patient verbally FALL SCREENING: Has the patient had 2 falls in the last year or 1 fall with injury or currently using an Ambulatory Assistive Device (Walker, Cane, Wheelchair, Crutches, etc.)? No PATIENT GENDER DATA: .female : No status: No ALLERGIES: Reviewed and unchanged MEDICATIONS REVIEWED: No PATIENT RELEVANT IMPLANT DATA REVIEWED: Not Applicable CREATININE: Creatinine Date Value Ref Range Status 10/08/2021 0.74 0.58 - 0.96 mg/dL Final 12/06/2020 0.75 0.58 - 0.96 mg/dL Final eGFR-All Other Races Date Value Ref Range Status 10/08/2021 >60 . Final Comment: eGFR (Estimated GFR) Units of measure: mL/min/1.73 meters squared eGFR is derived from the reexpressed MDRD Study equation using the following parameters: serum creatinine, age, gender and race. The creatinine assay has been calibrated to be traceable to IDMS. An eGFR <60 mL/min/1.73m2 for >3 months is consistent with chronic kidney disease. Refer to KDOQI guidelines for clinical interpretation. In patients with unstable renal function, e.g. those with acute kidney injury, the eGFR may not accurately reflect actual GFR. Note: On 10/15/2021, the eGFR calculation will be updated to the NKF-ASN Task Force recommended 2020 CKD-EPI creatinine equation which does not include a race variable. For more information or to access a 2020 CKD-EPI calculator, visit the National Kidney Foundation website at kidney.org/professionals/kdoqi/gfr_calculator. eGFR- Date Value Ref Range Status 10/08/2021 >60 Final P.O.C.T. RESULTS: N/A May 12, [address] PERFORMED: No IV SITE: Ambulatory: A peripheral IV was started in the Right antecubital site with a Angio cath: 24 gauge. POST EXAM PIV STATUS: Discontinued PROCEDURE TYPE: NM INJECT: Hepatobiliary with Gallbladder EF. 5.6 mCi Tc99m CHOLETEC. No other medications given.. NO GALLBLADDER VISUALIZED AFTER 2 HOURS OF IMAGING POST INJECTION OF CHOLETEC. ADMINISTRATION TIME: 09:50 PATIENT DISCHARGED TO: Ambulatory patient, left NM department area. A Diagnostic radioactive procedure has taken place, with no further precautions necessary other than routine body substance precautions. More information regarding radiation safety can be found usingthis link: [email or web address] SIGNATURE: MILTON De La Cruz PATIENT NAME: Terrie Rubio DATE: May 12, 2022 TIME: 10:01 AM PAGER/CONTACT #: documented in this encounterDelaware [facility] Hospital09-19-2022 NoteHNO ID: [id number] Author: Marcia Perry APRN.FIELD SERVICE POULTRY TECHNICIAN Service: ? Author Type: Nurse Practitioner Type: Progress Notes Filed: 05/08/2022 4:16 PM Note Text: Chief Complaint Patient presents with: Abdominal Pain: X 2 years HPI Terrie Rubio is a 22 year old female who presents here today for Above Complaints.. Today: Abdominal pain-intermittent for the past 2 years. At first felt this was r/t period. Stool is intermittently diarrhea and hard. N/V-quite a bit over the past couple years. Bloating. Is mainly in midabdomen and off to the sides. Is worse with eating-specifically greasy foods. Does have some heartburn. Has tried not eating dairy and this did not help. Has used Tums and Pepto-no improvement. Past medical history, appointments, medications, allergies reviewed. Previous Medical History PAST MEDICAL HISTORY Diagnosis Date Concussion 05/2015 volleyball NEGATIVE MEDICAL HISTORY 2012 normal color vision Viral meningitis 2011 [facility] Previous Surgical History PAST SURGICAL HISTORY Procedure Laterality Date TONSILLECTOMY AND ADENOIDECTOMY age 5 yrs Family History FAMILY HISTORY Problem Relation Age of Onset other (Right bundle Branch Blockage) Mother 44 other (thyroid twscrwg-jxr-zcwschlto) Mother Lipids Father other (MVP) Father other (right bundle branch block) Father other (thyroid wjcvfua-neq-hglnblegn) Father other (cancerous thyroid nodules) Sister thinks entire thyroid was removed No Known Problems Brother No Known Problems Brother Diabetes Maternal Grandmother Lipids Maternal Grandmother Heart Maternal Grandmother [place] Lipids Maternal Grandfather No Known Problems Paternal Grandmother Lipids Paternal Grandfather other (pacemaker) Paternal Grandfather Patient Allergies ALLERGIES Allergen Reactions Seasonal Allergies Other: See Comments Fall and Spring Current Medications Current Outpatient Medications on File Prior to Visit Medication Sig methylphenidate ER 27 mg tablet Take 1 tablet by mouth once daily for 30 days. Drospirenone-Ethinyl Estradiol (MARCIA, 28,) 3-0.02 mg per tablet Take 1 tablet by mouth once daily. Cholecalciferol, Vitamin D3, 125 mcg (5,000 unit) cap Take 1 capsule by mouth once daily. No current facility-administered medications on file prior to visit. Social History Social History Tobacco Use Smoking status: Never Smokeless tobacco: Never Vaping Use Vaping Use: Never used Substance Use Topics Alcohol use: Never Drug use: Never Review of Symptoms REVIEW OF SYSTEMS See HPI, otherwise negative EXAM: BP 116/82 (BP Site: Left Arm, BP Position: Sitting, BP Cuff Size: Regular Adult) Pulse 76 Resp 16 Wt 119.7 kg (264 lb) LMP 07/14/2021 General Appearance: Well appearing, alert, in no acute distress, well-hydrated, well nourished. and Morbidly obese. Lungs: Lungs clear to auscultation. No wheezing, rhonchi, rales.. Heart: RRR without murmur, gallop, or rubs. No ectopy. Abdomen: Normal abdominal exam, Abdomen soft, non-tender. Bowel sounds normal. No masses, organomegaly. Health Maintenance List MENINGOCOCCAL B: Consider based on risk(1 of 2 - Risk Bexsero 2-dose series) Never done GC (GONORRHEA) SCREENING (18-24) Never done HEPATITIS C SCREENING Never done HIV SCREENING Never done CHLAMYDIA SCREENING (18-24) Never done COVID-19 VACCINE(3 - Booster for Pfizer series) due on 07/19/2021 INFLUENZA(1) due on 04/20/2022 DTAP,TDAP,TD(7 - Td or Tdap) due on 03/21/2023 DEPRESSION SCREENING due on 05/08/2023 HEPATITIS B Completed HPV VACCINE Completed Data reviewed Previous records, office notes ASSESSMENT/PLAN: 1. Nausea and vomiting, unspecified vomiting type - ICD9: 787.01, ICD10: R11.2 (primary diagnosis) Suspect gallbladder etiology vs IBS. - US ABDOMEN COMPLETE - OMEPRAZOLE 20 MG CAPSULE,DELAYED RELEASE 2. 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 - US ABDOMEN COMPLETE - OMEPRAZOLE 20 MG CAPSULE,DELAYED RELEASE 3. Chronic constipation - ICD9: 564.00, ICD10: K59.09 Suspect gallbladder etiology vs IBS. - US ABDOMEN COMPLETE - OMEPRAZOLE 20 MG CAPSULE,DELAYED RELEASE 4. Abdominal bloating - ICD9: 787.3, ICD10: R14.0 Suspect gallbladder etiology vs IBS. - US ABDOMEN COMPLETE - OMEPRAZOLE 20 MG CAPSULE,DELAYED RELEASE 5. Fatty food intolerance - ICD9: 579.8, ICD10: K90.49 Suspect gallbladder etiology vs IBS. - US ABDOMEN COMPLETE - OMEPRAZOLE 20 MG CAPSULE,DELAYED RELEASE 6. Gastroesophageal reflux disease, unspecified whether esophagitis present - ICD9: 530.81, ICD10: K21.9 Suspect gallbladder etiology vs IBS. - US ABDOMEN COMPLETE - OMEPRAZOLE 20 MG CAPSULE,DELAYED RELEASE Marcia Perry APRN.CNPCity Hospital09-19-2022 Instructions* Patient Instructions* Marcia Perry APRN.CNP - 05/08/2022 4:13 PM EDT Start the omeprazole for heart burn/acid reflux. Schedule your abdominal ultrasound. documented in this encounterDelaware [facility] Hospital09-19-2022 History of Present illness Narrative* Marcia Perry APRN.CNP - 05/08/2022 3:58 PM EDT Chief Complaint Patient presents with: Abdominal Pain: X 2 years HPI Terrie Rubio is a 22 year old female who presents here today for Above Complaints.. Today: Abdominal pain-intermittent for the past 2 years. At first felt this was r/t period. Stool is intermittently diarrhea and hard. N/V-quite a bit over the past couple years. Bloating. Is mainly in midabdomen and off to the sides. Is worse with eating-specifically greasy foods. Does have some heartburn. Has tried not eating dairy and this did not help. Has used Tums and Pepto-no improvement. Past medical history, appointments, medications, allergies reviewed. Previous Medical History PAST MEDICAL HISTORY Diagnosis Date Concussion 05/2015 volleyball NEGATIVE MEDICAL HISTORY 2012 normal color vision Viral meningitis 2011 [facility] Previous Surgical History PAST SURGICAL HISTORY Procedure Laterality Date TONSILLECTOMY & ADENOIDECTOMY <AGE 14 age 5 yrs Family History FAMILY HISTORY Problem Relation Age of Onset other (Right bundle Branch Blockage) Mother 44 other (thyroid ywlukhy-pjq-dueprtjeo) Mother Lipids Father other (MVP) Father other (right bundle branch block) Father other (thyroid vaxjcyz-aig-vtgrntkbk) Father other (cancerous thyroid nodules) Sister thinks entire thyroid was removed No Known Problems Brother No Known Problems Brother Diabetes Maternal Grandmother Lipids Maternal Grandmother Heart Maternal Grandmother [place] Lipids Maternal Grandfather No Known Problems Paternal Grandmother Lipids Paternal Grandfather other (pacemaker) Paternal Grandfather Patient Allergies ALLERGIES Allergen Reactions Seasonal Allergies Other: See Comments Fall and Spring Current Medications Current Outpatient Medications on File Prior to Visit Medication Sig methylphenidate ER 27 mg tablet Take 1 tablet by mouth once daily for 30 days. Drospirenone-Ethinyl Estradiol (MARCIA, 28,) 3-0.02 mg per tablet Take 1 tablet by mouth once daily. Cholecalciferol, Vitamin D3, 125 mcg (5,000 unit) cap Take 1 capsule by mouth once daily. No current facility-administered medications on file prior to visit. Social History Social History Tobacco Use Smoking status: Never Smokeless tobacco: Never Vaping Use Vaping Use: Never used Substance Use Topics Alcohol use: Never Drug use: Never Review of Symptoms REVIEW OF SYSTEMS See HPI, otherwise negative EXAM: BP 116/82 (BP Site: Left Arm, BP Position: Sitting, BP Cuff Size: Regular Adult) Pulse 76 Resp 16 Wt 119.7 kg (264 lb) LMP 07/14/2021 General Appearance: Well appearing, alert, in no acute distress, well-hydrated, well nourished. andMorbidly obese. Lungs: Lungs clear to auscultation. No wheezing, rhonchi, rales.. Heart: RRR without murmur, gallop, or rubs. No ectopy. Abdomen: Normal abdominal exam, Abdomen soft, non-tender. Bowel sounds normal. No masses, organomegaly. Health Maintenance List MENINGOCOCCAL B: Consider based on risk(1 of 2 - Risk Bexsero 2-dose series) Never done GC (GONORRHEA) SCREENING (18-) Never done HEPATITIS C SCREENING Never done HIV SCREENING Never done CHLAMYDIA SCREENING (18-) Never done COVID-19 VACCINE(3 - Booster for Pfizer series) due on 07/19/2021 INFLUENZA(1) due on 04/20/2022 DTAP,TDAP,TD(7 - Td or Tdap) due on 03/21/2023 DEPRESSION SCREENING due on 05/08/2023 HEPATITIS B Completed HPV VACCINE Completed Data reviewed Previous records, office notes ASSESSMENT/PLAN: 1. Nausea and vomiting, unspecified vomiting type - ICD9: 787.01, ICD10: R11.2 (primary diagnosis) Suspect gallbladder etiology vs IBS. - US ABDOMEN COMPLETE - OMEPRAZOLE 20 MG CAPSULE,DELAYED RELEASE 2. 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 - US ABDOMEN COMPLETE - OMEPRAZOLE 20 MG CAPSULE,DELAYED RELEASE 3. Chronic constipation - ICD9: 564.00, ICD10: K59.09 Suspect gallbladder etiology vs IBS. - US ABDOMEN COMPLETE - OMEPRAZOLE 20 MG CAPSULE,DELAYED RELEASE 4. Abdominal bloating - ICD9: 787.3, ICD10: R14.0 Suspect gallbladder etiology vs IBS. - US ABDOMEN COMPLETE - OMEPRAZOLE 20 MG CAPSULE,DELAYED RELEASE 5. Fatty food intolerance - ICD9: 579.8, ICD10: K90.49 Suspect gallbladder etiology vs IBS. - US ABDOMEN COMPLETE - OMEPRAZOLE 20 MG CAPSULE,DELAYED RELEASE 6. Gastroesophageal reflux disease, unspecified whether esophagitis present - ICD9: 530.81, ICD10: K21.9 Suspect gallbladder etiology vs IBS. - US ABDOMEN COMPLETE - OMEPRAZOLE 20 MG CAPSULE,DELAYED RELEASE Marcia Perry APRN.CNP documented in this encounterDelaware [facility] Hospital09-08-2022 NoteHNO ID: [id number] Author: Dario Perez Service: ? Author Type: Physician Type: Progress Notes Filed: 04/27/2022 3:21 PM Note Text: Consultation requested by Dr. Perry for an opinion regarding ingrowing toenail. My final recommendations will be communicated back to the requesting physician by way of shared Medical record or letter to requesting physician via [place] mail. Initial Podiatric Office Visit: Chief Complaint: This 22 year old female who presents with chief complaint:ingrowing toenail of b/l hallux HPI Patient complains of pain to b/l hallux medial and lateral nail borders This is a chronic complaint for patient She treats by debriding herself. She denies any current redness or drainage. PAIN EVALUATION 04/27/2022 1451 Pain Level: 7 Pain Location: Toe Description: Sharp;Sore Duration Amount of Time: 6 Duration Units: Months Frequency: Intermittent Intervention/Comfort measure: Reposition;Relaxation Hemoglobin A1C (%) Date Value 10/08/2021 5.4 12/06/2020 5.2 03/24/2017 5.2 PCP: Chetan Lmab DO PAST MEDICAL HISTORY Diagnosis Date Concussion 05/2015 volleyball NEGATIVE MEDICAL HISTORY 2013 normal color vision Viral meningitis 2011 [facility] Current Outpatient Medications Medication Sig methylphenidate ER 27 mg tablet Take 1 tablet by mouth once daily for 30 days. Drospirenone-Ethinyl Estradiol (MARCIA, 28,) 3-0.02 mg per tablet Take 1 tablet by mouth once daily. Cholecalciferol, Vitamin D3, 125 mcg (5,000 unit) cap Take 1 capsule by mouth once daily. No current facility-administered medications for this visit. ALLERGIES Allergen Reactions Seasonal Allergies Other: See Comments Fall and Spring PAST SURGICAL HISTORY Procedure Laterality Date TONSILLECTOMY AND ADENOIDECTOMY age 5 yrs FAMILY HISTORY Problem Relation Age of Onset other (Right bundle Branch Blockage) Mother 44 other (thyroid xjyuira-ehn-lxhoyjcqb) Mother Lipids Father other (MVP) Father other (right bundle branch block) Father other (thyroid pslpnsv-gpm-rkjecritd) Father other (cancerous thyroid nodules) Sister thinks entire thyroid was removed No Known Problems Brother No Known Problems Brother Diabetes Maternal Grandmother Lipids Maternal Grandmother Heart Maternal Grandmother [place] Lipids Maternal Grandfather No Known Problems Paternal Grandmother Lipids Paternal Grandfather other (pacemaker) Paternal Grandfather Social History Tobacco Use Smoking status: Never Smokeless tobacco: Never Vaping Use Vaping Use: Never used Substance Use Topics Alcohol use: Never Drug use: Never REVIEW OF SYSTEMS GENERAL: Negative for Malaise, significant weight loss, fever RESPIRATORY: Negative for cough, wheezing and shortness of breath CARDIOVASCULAR: Negative for chest pain, leg swelling and palpitations GI: Negative for abdominal discomfort, blood in stools or black stools and change in bowel habits : Negative for dysuria, frequency and incontinence MUSCULOSKELETAL: Negative for joint pain or swelling, back pain, and muscle pain. SKIN: Negative for lesions, rash, and itching. HEMATOLOGY/LYMPHOLOGY Negative for prolonged bleeding, bruising easily, and swollen nodes. ENDOCRINE: Negative for cold or heat intolerance, polyuria, polydipsia and goiter. NEURO: negative Physical Exam: Constitutional: Pt is a well developed 22 year old female who is alert, oriented and cooperative Eyes: Following during examination. No redness or drainage. Respiratory: RR normal and nonlabored. Even breathing. No evidence of distress or shortness of breath. Psychology: Patient is engaged during conversation. Normal affect and mood. Does not appear depressed or anxious during encounter. Vascular: Dorsalis pedis and posterior tibial pulses palpable as b/l Capillary Fill time < 5 seconds to digits 1-5 b/l Skin temperature warm to warm proximal to distal b/l Hair growth present to digits Neurological: intact light touch/epicritic sensation b/l intact protective sensation no significant neurological deficits Dermatological: B/l hallux medial and lateral borders are incurvated. No pain or signs of infection noted. Webspaces clean and dry 1-4 b/l. Skin appears well hydrated and supple. good color, texture, turgor. No open lesions present. No callosities present. Musculoskeletal/Orthopaedic: Patient has no pain to palpation of b/l feet Radiographs: n/a ASSESSMENT: (L60.0) Ingrown toenail PLAN: 1. History and physical examination performed. 2. Discussed ingrowing toenail. No signs of infection 3. I did inform her that these will likely be a chronic problem and that she can address them with partial or total nail matrixectomy. Patient is going to consider her optoins 4. We discussed doing these today but she would like to think about that 5. F/u prn Dario Perez DPM Podiatry [address] (more content not included)...[facility] Note HNO ID: [id number] Author: Kayla Go RN Service: ? Author Type: ? Type: Progress Notes Filed: 04/27/2022 3:21 PM Note Text: AMB ROOMING INTAKE FLOWSHEET DATA Risk Screening Do you have concerns about personal safety or safety in the home?: No Pain Pain Level: 7 Pain Location: Toe Description: Sharp, Sore Duration Amount of Time: 6 Duration Units: Months Frequency: Intermittent Intervention/Comfort measure: Reposition, Relaxation Patient presents with: Left Great Toe - New Patient, Ingrown Nail Right Great Toe - New Patient, Ingrown Nail Patient c/o B/L ingrown toenails that have been painful with pressure x 6 months. Doesn't notice that they have ever been infected.[facility]09-[facility] Instructions* Patient Instructions* Dario Perez - 04/27/2022 3:16 PM EDT Consider doing permanent nail procedure of either borders or entire nail Call to arrange procedure documented in this encounterDelaware [facility]09-08-2022 History of Present illness Narrative* Dario Perez - 04/27/2022 3:10 PM EDT Consultation requested by Dr. Perry for an opinion regarding ingrowing toenail. My final recommendations will be communicated back to the requesting physician by way of shared Medical record or letter to requesting physician via [place] mail. Initial Podiatric Office Visit: Chief Complaint: This 22 year old female who presents with chief complaint:ingrowing toenail of b/lhallux HPI Patient complains of pain to b/l hallux medial and lateral nail borders This is a chronic complaint for patient She treats by debriding herself. She denies any current redness or drainage. PAIN EVALUATION 04/27/2022 1451 Pain Level: 7 Pain Location: Toe Description: Sharp;Sore Duration Amount of Time: 6 Duration Units: Months Frequency: Intermittent Intervention/Comfort measure: Reposition;Relaxation Hemoglobin A1C (%) Date Value 10/08/2021 5.4 12/06/2020 5.2 03/24/2017 5.2 PCP: Chetan Lamb DO PAST MEDICAL HISTORY Diagnosis Date Concussion 05/2015 volleyball NEGATIVE MEDICAL HISTORY 2013 normal color vision Viral meningitis 2011 [facility] Current Outpatient Medications Medication Sig methylphenidate ER 27 mg tablet Take 1 tablet by mouth once daily for 30 days. Drospirenone-Ethinyl Estradiol (MARCIA, 28,) 3-0.02 mg per tablet Take 1 tablet by mouth once daily. Cholecalciferol, Vitamin D3, 125 mcg (5,000 unit) cap Take 1 capsule by mouth once daily. No current facility-administered medications for this visit. ALLERGIES Allergen Reactions Seasonal Allergies Other: See Comments Fall and Spring PAST SURGICAL HISTORY Procedure Laterality Date TONSILLECTOMY & ADENOIDECTOMY <AGE 14 age 5 yrs FAMILY HISTORY Problem Relation Age of Onset other (Right bundle Branch Blockage) Mother 44 other (thyroid [id number]) Mother Lipids Father other (MVP) Father other (right bundle branch block) Father other (thyroid irirmui-eff-grhdukxqo) Father other (cancerous thyroid nodules) Sister thinks entire thyroid was removed No Known Problems Brother No Known Problems Brother Diabetes Maternal Grandmother Lipids Maternal Grandmother Heart Maternal Grandmother [place] Lipids Maternal Grandfather No Known Problems Paternal Grandmother Lipids Paternal Grandfather other (pacemaker) Paternal Grandfather Social History Tobacco Use Smoking status: Never Smokeless tobacco: Never Vaping Use Vaping Use: Never used Substance Use Topics Alcohol use: Never Drug use: Never REVIEW OF SYSTEMS GENERAL: Negative for Malaise, significant weight loss, fever RESPIRATORY: Negative for cough, wheezing and shortness of breath CARDIOVASCULAR: Negative for chest pain, leg swelling and palpitations GI: Negative for abdominal discomfort, blood in stools or black stools and change in bowel habits : Negative for dysuria, frequency and incontinence MUSCULOSKELETAL: Negative for joint pain or swelling, back pain, and muscle pain. SKIN: Negative for lesions, rash, and itching. HEMATOLOGY/LYMPHOLOGY Negative for prolonged bleeding, bruising easily, and swollen nodes. ENDOCRINE: Negative for cold or heat intolerance, polyuria, polydipsia and goiter. NEURO: negative Physical Exam: Constitutional: Pt is a well developed 22 year old female who is alert, oriented and cooperative Eyes: Following during examination. No redness or drainage. Respiratory: RR normal and nonlabored. Even breathing. No evidence of distress or shortness of breath. Psychology: Patient is engaged during conversation. Normal affect and mood. Does not appear depressed or anxious during encounter. Vascular: Dorsalis pedis and posterior tibial pulses palpable as b/l Capillary Fill time < 5 seconds to digits 1-5 b/l Skin temperature warm to warm proximal to distal b/l Hair growth present to digits Neurological: intact light touch/epicritic sensation b/l intact protective sensation no significant neurological deficits Dermatological: B/l hallux medial and lateral borders are incurvated. No pain or signs of infection noted. Webspaces clean and dry 1-4 b/l. Skin appears well hydrated and supple. good color, texture, turgor. No openlesions present. No callosities present. Musculoskeletal/Orthopaedic: Patient has no pain to palpation of b/l feet Radiographs: n/a ASSESSMENT: (L60.0) Ingrown toenail PLAN: 1. History and physical examination performed. 2. Discussed ingrowing toenail. No signs of infection 3. I did inform her that these will likely be a chronic problem and that she can address them with partial or total nail matrixectomy. Patient is going to consider her optoins 4. We discussed doing these today but she would like to think about that 5. F/u prn Dario Perez DPM Podiatry [address] [facility] [address] Dept: [phone] Dept * Kayla Go RN - 04/27/2022 2:50 PM EDT AMB ROOMING INTAKE FLOWSHEET DATA Risk Screening Do you have concerns about personal safety or safety in the home?: No Pain Pain Level: 7 Pain Location: Toe Description: Sharp, Sore Duration Amount of Time: 6 Duration Units: Months Frequency: Intermittent Intervention/Comfort measure: Reposition, Relaxation Patient presents with: Left Great Toe - New Patient, Ingrown Nail Right Great Toe - New Patient, Ingrown Nail Patient c/o B/L ingrown toenails that have been painful with pressure x 6 months. Doesn't notice that they have ever been infected. [facility] Miscellaneous Notes* Telephone Encounter - Marcia Perry APRN.CNP - 04/17/2022 4:45 PM EDT The following approved medication requests have been transmitted electronically. Requested Prescriptions Signed Prescriptions Disp Refills methylphenidate ER 27 mg tablet 30 tablet 0 Sig: Take 1 tablet by mouth once daily for 30 days. Marcia Perry APRN.CNP PDMP website checked and validated. All prescriptions have been APPROPRIATELY filled. No suspiciousactivity was identified. 04/17/2022 by Marcia Perry CNP. * Telephone Encounter - Stacey Graff Ma - 04/17/2022 10:27 AM EDT Please see pt message and advise. Stacey Graff Ma documented in [facility] encounterDel[facility]08-[facility]22 Miscellaneous Notes* Telephone Encounter - Marcia Perry APRN.CNP - 04/06/2022 11:36 AM EDT The following approved medication requests have been transmitted electronically. Requested Prescriptions Signed Prescriptions Disp Refills methylphenidate ER 18 mg tablet 30 tablet 0 Sig: Take 1 tablet by mouth once daily for 30 days. Marcia Perry APRN.CNP PDMP website checked and validated. All prescriptions have been APPROPRIATELY filled. No suspiciousactivity was identified. 04/06/2022 by Marcia Perry CNP. * Telephone Encounter - Erica Villaseñor Ma - 03/31/2022 9:21 AM EDT See update. Erica Villaseñor Ma * Telephone Encounter - Erica Villaseñor Ma - 03/24/2022 8:58 AM EDT See update from pt. Erica Villaseñor Ma documented in this encounterDel[facility]07-27-2022 Instructions* Patient Instructions* Marcia Perry APRN.CNP - 03/15/2022 4:07 PM EDT Soak your toe a couple times daily in either warm water and Epsom salt or warm water and liquid Dreft. Let me know if the redness gets hard and extremely painful. We'll likely need to start an antibiotic at that time. Schedule with podiatry (Dr. Perez). Start your Adderall, take once daily in the mornings. Send me a Omnistream message in 2 weeks with an update on the medication and your symptoms. documented in this encounterDel[facility]07-27-2022 History of Present illness Narrative* Marcia Perry APRN.LEW - 03/15/2022 3:52 PM EDT Chief Complaint Patient presents with: Physical HPI Terrie Rubio is a 22 year old female who presents here today for Above Complaints. Today: Toe-Thinks the has an ingrown toenail on her big left toe. Has been bothering her for about 6 months, but just started bothering her a couple days ago. Arms-random red spots on her arms. If wipes them, they go away but then come right back. Anxiety-over thinks situations. After started college, can't concentrate. Difficulty getting tasks completed. This in turn makes her feel more anxious. Is not great in social situations. time speaking with people-afraid she might say something wrong but also can't focus on the conversation. Thinks she may be having panic attacks-sharp chest pain and through to her back. When she was in school this was every day. Is now every few months. Past medical history, appointments, medications, allergies reviewed. Previous Medical History PAST MEDICAL HISTORY Diagnosis Date Concussion 05/2015 volleyball NEGATIVE MEDICAL HISTORY 2012 normal color vision Viral meningitis 2011 [facility] Previous Surgical History PAST SURGICAL HISTORY Procedure Laterality Date TONSILLECTOMY & ADENOIDECTOMY <AGE 14 age 5 yrs Family History FAMILY HISTORY Problem Relation Age of Onset other (Right bundle Branch Blockage) Mother 44 other (thyroid wxbnxxv-qxs-fzribhtib) Mother Lipids Father other (MVP) Father other (right bundle branch block) Father other (thyroid ghyusgy-lze-vwcxghatc) Father other (cancerous thyroid nodules) Sister thinks entire thyroid was removed No Known Problems Brother No Known Problems Brother Diabetes Maternal Grandmother Lipids Maternal Grandmother Heart Maternal Grandmother [place] Lipids Maternal Grandfather No Known Problems Paternal Grandmother Lipids Paternal Grandfather other (pacemaker) Paternal Grandfather Patient Allergies ALLERGIES Allergen Reactions Seasonal Allergies Other: See Comments Fall and Spring Current Medications Current Outpatient Medications on File Prior to Visit Medication Sig Drospirenone-Ethinyl Estradiol (MARCIA, 28,) 3-0.02 mg per tablet Take 1 tablet by mouth once daily. Cholecalciferol, Vitamin D3, 125 mcg (5,000 unit) cap Take 1 capsule by mouth once daily. No current facility-administered medications on file prior to visit. Social History Social History Tobacco Use Smoking status: Never Smoker Smokeless tobacco: Never Used Vaping Use Vaping Use: Never used Substance Use Topics Alcohol use: Never Drug use: Never Review of Symptoms REVIEW OF SYSTEMS see HPI, otherwise negative EXAM: BP 120/74 (BP Site: Left Arm, BP Position: Sitting, BP Cuff Size: Large Adult) Pulse 82 Resp 16 Wt 119.8 kg (264 lb 3.2 oz) LMP 07/14/2021 SpO2 96% General Appearance: Well appearing, alert, in no acute distress, well-hydrated, well nourished. andMorbidly obese. Skin: Skin color, texture, turgor normal, no suspicious rashes or lesions. Head: Normocephalic, no masses, lesions, tenderness or abnormalities. Eyes: Anicteric sclera. Pupils are equally round and reactive to light. Extraocular movements are intact. . Ears: External ears normal, canals clear. Nose/Sinuses: Nares normal, septum midline, mucosa normal, no drainage or sinus tenderness. Oropharynx: Lips, mucosa, and tongue normal, teeth and gums normal, oropharynx normal. Neck: Supple, no adenopathy; thyroid symmetric, normal size, no bruits. Lungs: Lungs clear to auscultation. No wheezing, rhonchi, rales.. Heart: RRR without murmur, gallop, or rubs. No ectopy. Abdomen: Normal abdominal exam, Abdomen soft, non-tender. Bowel sounds normal. No masses, organomegaly. Extremities: No deformities, edema, skin discoloration, clubbing or cyanosis. Good capillary refill. Pain to left great toe, moderate redness around entire nail, painful to the touch, no induration noted.. Musculoskeletal: No joint swelling, deformity, or tenderness. Peripheral Pulses: Normal. Neurologic: Gait normal. Reflexes normal and symmetric. Sensation grossly intact.. Lymph Nodes: No cervical lymphadenopathy and No supraclavicular lymphadenopathy. Psychiatric: pleasant, cooperative. Health Maintenance List MENINGOCOCCAL B: Consider based on risk(1 of 2 - Risk Bexsero 2-dose series) Never done GC (GONORRHEA) SCREENING (18-24) Never done HEPATITIS C SCREENING Never done HIV SCREENING Never done CHLAMYDIA SCREENING (18-) Never done COVID-19 VACCINE(3 - Booster for Pfizer series) due on 07/19/2021 INFLUENZA(1) due on 04/20/2022 DEPRESSION SCREENING due on 03/14/2023 DTAP,TDAP,TD(7 - Td or Tdap) due on 03/21/2023 HPV VACCINE Completed Data reviewed See HPI, otherwise negative ASSESSMENT/PLAN: 1. Attention deficit hyperactivity disorder (ADHD), predominantly inattentive type - ICD9: 314.00, ICD10: F90.0 (primary diagnosis) Begin low dose of Adderall. Discussed common side effects of medication. - DEXTROAMPHETAMINE-AMPHETAMINE 7.5 MG TABLET 2. Anxiety with depression - ICD9: 300.4, ICD10: F41.8 Begin low dose of Adderall. Discussed common side effects of medication. - DEXTROAMPHETAMINE-AMPHETAMINE 7.5 MG TABLET 3. Ingrown toenail - ICD9: 703.0, ICD10: L60.0 Soak in warm Epsom salts and/or Dreft. - CONSULT TO PODIATRY Marcia Perry APRN.LEW documented in this encounterDel[facility]07-12-2022 Miscellaneous Notes* Telephone Encounter - Nathalia Copeland LPN - 02/28/2022 4:01 PM EDT Please see pt's mychart message and advise. Nathalia Copeland LPN' documented in this encounterDel[facility]06-23-2022 Miscellaneous Notes* Telephone Encounter - Kimberly Harrison Ma - 02/09/2022 4:12 PM EDT Pt scheduled for physical on Sun02/15/22 at 3:20 PM with Marcia Perry. Pt notified via AG&Phart. * Telephone Encounter - Kimberly Harrison Ma - 02/09/2022 11:03 AM EDT Offered to assist with scheduling physical for pt. Awaiting response back on day and time that works for pt. Kimberly Harrison Ma documented in this encounterDel[facility]08-03-2021 Miscellaneous Notes* Telephone Encounter - Cris Smith LPN - 03/22/2021 11:52 AM EDT Phone call placed [phone], no answer. Omnistream message sent by patient with current sxs, request additional information. Cris Smith LPN documented in this encounterDel[facility]07-20-2016 History of Past illness Narrative* Problem Noted Date Resolved Date Low back pain 03/08/2016 03/18/2018 documented as of this encounter (statuses as of 01/26/2022) [address]20-2016 History of Past illness Narrative* Problem Noted Date Resolved Date Low back pain 03/08/2016 03/18/2018 documented as of this encounter (statuses as of 02/09/2022) [facility] of [facility] illness Narrative* Problem Noted Date Resolved Date Low back pain 03/08/2016 03/18/2018 documented as of this encounter (statuses as of 02/28/2022) [address]20-2016 History of Past illness Narrative* Problem Noted Date Resolved Date Low back pain 03/08/2016 03/18/2018 documented as of this encounter (statuses as of 03/16/2022) [address]20-2016 History of Past illness Narrative* Problem Noted Date Resolved Date Low back pain 03/08/2016 03/18/2018 documented as of this encounter (statuses as of 04/06/2022) [address]20-2016 History of Past illness Narrative* Problem Noted Date Resolved Date Low back pain 03/08/2016 03/18/2018 documented as of this encounter (statuses as of 04/18/2022) [address]20-2016 History of Past illness Narrative* Problem Noted Date Resolved Date Low back pain 03/08/2016 03/18/2018 documented as of this encounter (statuses as of 04/27/2022) [address]20-2016 History of Past illness Narrative* Problem Noted Date Resolved Date Low back pain 03/08/2016 03/18/2018 documented as of this encounter (statuses as of 05/08/2022) [address]20-2016 History of Past illness Narrative* Problem Noted Date Resolved Date Low back pain 03/08/2016 03/18/2018 documented as of this encounter (statuses as of 05/10/2022) [address]20-2016 History of Past illness Narrative* Problem Noted Date Resolved Date Low back pain 03/08/2016 03/18/2018 documented as of this encounter (statuses as of 05/13/2022) [address]20-2016 History of Past illness Narrative* Problem Noted Date Resolved Date Low back pain 03/08/2016 03/18/2018 documented as of this encounter (statuses as of 05/25/2022) [address]20-2016 History of Past illness Narrative* Problem Noted Date Resolved Date Low back pain 03/08/2016 03/18/2018 documented as of this encounter (statuses as of 05/31/2022) [address]20-2016 History of Past illness Narrative* Problem Noted Date Resolved Date Low back pain 03/08/2016 03/18/2018 documented as of this encounter (statuses as of 06/01/2022) [address]20-2016 History of Past illness Narrative* Problem Noted Date Resolved Date Low back pain 03/08/2016 03/18/2018 documented as of this encounter (statuses as of 06/12/2022) [address]20-2016 History of Past illness Narrative* Problem Noted Date Resolved Date Low back pain 03/08/2016 03/18/2018 documented as of this encounter (statuses as of 06/19/2022) [address]20-2016 History of Past illness Narrative* Problem Noted Date Resolved Date Low back pain 03/08/2016 03/18/2018 documented as of this encounter (statuses as of 06/20/2022) [address] History of Past illness Narrative* Problem Noted Date Resolved Date Low back pain 03/08/2016 03/18/2018 documented as of this encounter (statuses as of 07/08/2022) [address]20-2016 History of Past illness Narrative* Problem Noted Date Resolved Date Low back pain 03/08/2016 03/18/2018 documented as of this encounter (statuses as of 08/04/2022) [address]20-2016 History of Past illness Narrative* Problem Noted Date Resolved Date Low back pain 03/08/2016 03/18/2018 documented as of this encounter (statuses as of 08/11/2022) [address]20-2016 History of Past illness Narrative* Problem Noted Date Resolved Date Low back pain 03/08/2016 03/18/2018 documented as of this encounter (statuses as of 08/29/2022) [address]20-2016 History of Past illness Narrative* Problem Noted Date Resolved Date Low back pain 03/08/2016 03/18/2018 documented as of this encounter (statuses as of 12/18/2022) [address] History of Past illness Narrative* Problem Noted Date Resolved Date Low back pain 03/08/2016 03/18/2018 documented as of this encounter (statuses as of 12/22/2022) [address]20-2016 History of Past illness Narrative* Problem Noted Date Resolved Date Low back pain 03/08/2016 03/18/2018 documented as of this encounter (statuses as of 12/25/2022) [address]20-2016 History of Past illness Narrative* Problem Noted Date Resolved Date Low back pain 03/08/2016 03/18/2018 documented as of this encounter (statuses as of 12/26/2022) [place] [id number] History of Past illness Narrative* Problem Noted Date Resolved Date Low back pain 03/08/2016 03/18/2018 documented as of this encounter (statuses as of 02/22/2023) [place] [id number] History of Past illness Narrative* Problem Noted Date Diagnosed Date Resolved Date Low back pain 03/08/2016 03/18/2018 documented as of this encounter (statuses as of 03/15/2023) [facility] note* Diagnosis Attention deficit hyperactivity disorder (ADHD), predominantly inattentive type- Primary Anxiety with depression Ingrown toenail Ingrowing nail documented in this encounter [facility] note* Diagnosis Attention deficit hyperactivity disorder (ADHD), predominantly inattentive type- Primary Anxiety with depression [facility] Diagnosis Attention deficit hyperactivity disorder (ADHD), predominantly inattentive type- Primary [facility]* Diagnosis Ingrown toenail Ingrowing nail [facility] Diagnosis Nausea and vomiting, unspecified vomiting type- Primary Functional diarrhea Chronic constipation Unspecified constipation Abdominal bloating Flatulence, eructation, and gas pain Fatty food intolerance Other specified intestinal malabsorption Gastroesophageal reflux disease, unspecified whether esophagitis present [facility]* Diagnosis Nausea and vomiting, unspecified vomiting type Functional diarrhea Chronic constipation Unspecified constipation Abdominal bloating Flatulence, eructation, and gas pain Fatty food intolerance Other specified intestinal malabsorption Gastroesophageal reflux disease, unspecified whether esophagitis present [facility]* Diagnosis Calculus of gallbladder without cholecystitis without obstruction Calculus of gallbladder without mention of cholecystitis or obstruction Nausea Nausea alone documented in this encounter [facility] note* Diagnosis DARBY (generalized anxiety disorder)- Primary Generalized anxiety disorder [facility] Diagnosis Injury of nail bed of finger of left hand, initial encounter- Primary Anxiety attack Panic disorder without agoraphobia [facility]* Diagnosis Nausea and vomiting, unspecified vomiting type Functional diarrhea Chronic constipation Unspecified constipation Abdominal bloating Flatulence, eructation, and gas pain Fatty food intolerance Other specified intestinal malabsorption Gastroesophageal reflux disease, unspecified whether esophagitis present [facility]* Diagnosis DARBY (generalized anxiety disorder) Generalized anxiety disorder documented in this encounter [facility] note* Diagnosis Calculus of gallbladder without cholecystitis without obstruction- Primary Calculus of gallbladder without mention of cholecystitis or obstruction Nausea and vomiting, unspecified vomiting type Functional diarrhea Abdominal bloating Flatulence, eructation, and gas pain Fatty food intolerance Other specified intestinal malabsorption documented in this encounter [facility] note* Diagnosis Nausea- Primary Nausea alone Gastroesophageal reflux disease, unspecified whether esophagitis present Right ear pain Otalgia, unspecified documented in this encounter [facility] note* Diagnosis RUQ pain- Primary Abdominal pain, right upper quadrant documented in this encounter [facility] note* Diagnosis Well adult exam- Primary Routine general medical examination at a health care facility Elevated LFTs Other abnormal blood chemistry RUQ pain Abdominal pain, right upper quadrant Fatty liver Other chronic nonalcoholic liver disease DARBY (generalized anxiety disorder) Generalized anxiety disorder Obesity, Class III, BMI 40-49.9 (morbid obesity) (HCC) Morbid obesity documented in this encounter [facility] note* Diagnosis Encounter for gynecological examination (general) (routine) without abnormal findings- Primary Screening for cervical cancer Screening for malignant neoplasm of the cervix Encounter for screening for human papillomavirus (HPV) Special screening examination for human papillomavirus (HPV) Screen for STD (sexually transmitted disease) Screening examination for venereal disease Encounter for surveillance of contraceptive pills Surveillance of previously prescribed contraceptive pill documented in this encounter [facility] note* Diagnosis Obesity, Class III, BMI 40-49.9 (morbid obesity) (HCC)- Primary Morbid obesity documented in this encounter [facility] note* Diagnosis DARBY (generalized anxiety disorder) Generalized anxiety disorder documented in this encounter [facility] for [facility] (narrative)* Diagnostic Procedure Only (Routine) - Authorized Specialty Diagnoses / Procedures Referred By Salvador hare Referred To Contact US IMAGING Diagnoses Nausea and vomiting, unspecified vomiting type Functional diarrhea Chronic constipation Abdominal bloating Fatty food intolerance Gastroesophageal reflux disease, unspecified whether esophagitis present Procedures US ABDOMEN COMPLETE US ABDOMINAL REAL TIME W/IMAGE DOCUMENTATION Marcia Perry, TISHA.[employer]CH[employer]ICIAN [address] [place] [address] Us Imaging Referral ID Status Reason Start Date Expiration Date Visits Requested Visits Authorized [id number] Authorized Auto-Generat ed Referral 05/08/2022 06/07/2023 1 1 [facility] for referral (narrative)* Diagnostic Procedure Only (Routine) - Closed Specialty Diagnoses / Procedures Referred By Contac t Referred To Contact US IMAGING Diagnoses Nausea and vomiting, unspecified vomiting type Functional diarrhea Chronic constipation Abdominal bloating Fatty food intolerance Gastroesophageal reflux disease, unspecified whether esophagitis present Procedures US ABDOMEN COMPLETE US ABDOMINAL REAL TIME W/IMAGE DOCUMENTATION Marcia Perry APRN.[employer] TECHNICIAN [address] [place] [address] Us Imaging Referral ID Status Reason Start Date Expiration Date V isits Requested Visits Authorized [id number] Closed Auto-Generate d Referral 05/08/2022 06/07/2023 1 1 [facility] for referral (narrative)* Diagnostic Procedure Only (Routine) - Closed Specialty Diagnoses / Procedures Referred By Contac t Referred To Contact MOLECULAR & FUNCTIONAL IMAGING Diagnoses Calculus of gallbladder without cholecystitis without obstruction Nausea Procedures NM HEPATOBILIARY W EF AND/OR RX [facility] GB W/PHARMA INTERVENJ Marcia Perry APRN.FIELD SERVICE POULTRY TECHNICIAN [address] [place] [address] Molecular & Functional Imaging [address] [place] [address] Referral ID Status Reason Start Date Expiration Date V isits Requested Visits Authorized [id number] Closed Auto-Generate d Referral 05/10/2022 06/09/2023 1 1 [facility] for referral (narrative)* Diagnostic Procedure Only (Routine) - Authorized Specialty Diagnoses / Procedures Referred By Contac t Referred To Contact US IMAGING Diagnoses RUQ pain Procedures US ABD RIGHT UPPER QUADRANT US ABDOMINAL REAL TIME W/IMAGE LIMITED Noreen London APRN.FIELD SERVICE POULTRY TECHNICIAN [address] [place] [address] Us Imaging Referral ID Status Reason Start Date Expiration Date Visits Requested Visits Authorized [id number] Authorized Auto-Generat ed Referral 12/22/2022 01/21/2024 1 1 [facility] Procedure Only (Routine) - Closed Specialty Diagnoses / Procedures Referred By Contac t Referred To Contact US IMAGING Diagnoses Nausea and vomiting, unspecified vomiting type Functional diarrhea Chronic constipation Abdominal bloating Fatty food intolerance Gastroesophageal reflux disease, unspecified whether esophagitis present Procedures US ABDOMEN COMPLETE US ABDOMINAL REAL TIME W/IMAGE DOCUMENTATION Marcia Perry APRN.CNP [address] [place] [address] Us Imaging Referral ID Status Reason Start Date Expiration Date V isits Requested Visits Authorized [id number] Closed Auto-Generate d Referral 05/08/2022 06/07/2023 1 1 [facility] Concerns Infection Onset Date Last Indicated Resolved Time COVID-19 Rule-Out 04/11/2021 04/11/2021 04/12/2021 7:38 AM EDT COVID-19 Rule-Out 08/25/2021 08/25/2021 08/26/2021 5:48 AM EST Reason for Referral Specialty Diagnoses / Procedures Referred By Contac t Referred To Contact Podiatry Diagnoses Ingrown toenail Procedures CONSULT TO PODIATRY OFFICE/OUTPATIENT [facility] 60-74 MINUTES Marcia Perry APRN.FIELD SERVICE POULTRY TECHNICIAN [address] [place] [address] Referral ID Status Reason Start Date Expiration Date Visits Requested Visits Authorized [id number] Authorized PCP Requested Referral 03/15/2022 03/15/2023 1 1 Specialty Diagnoses / Procedures Referred By Contac t Referred To Contact General Surgery Diagnoses Calculus of gallbladder without cholecystitis without obstruction Nausea and vomiting, unspecified vomiting type Functional diarrhea Abdominal bloating Fatty food intolerance Procedures CONSULT TO GENERAL SURGERY OFFICE/OUTPATIENT [facility] 60-74 MINUTES Marcia Perry APRN.CNP [address] [place] [address] Referral ID Status Reason Start Date Expiration Date Visits Requested Visits Authorized [id number] Authorized PCP Requested Referral 05/12/2022 05/12/2023 1 1 Summary Purpose Family History No Family History Records Found Advance Directives No Advanced Directives Records Found Additional Source Comments Source Comments (unrecognize d section and content) In the event this informatio n is protected by the Federal Confidentiality of Alcohol and Drug Abuse Patient Records regulations: The Federal rules restrict any use of the information to criminally investigate or prosecute any alcohol or drug abuse patient.[facility] the event this information is protected by the Federal Confidentiality of Alcohol and Drug Abuse Patient Records regulations: The Federal rules restrict any use of the information to criminally investigate or prosecute any alcohol or drug abuse patient.[facility] the event this information is protected by the Federal Confidentiality of Alcohol and Drug Abuse Patient Records regulations: The Federal rules restrict any use of the information to criminally investigate or prosecute any alcohol or drug abuse patient.[facility] the event this information is protected by the Federal Confidentiality of Alcohol and Drug Abuse Patient Records regulations: The Federal rules restrict any use of the information to criminally investigate or prosecute any alcohol or drug abuse patient.[facility] the event this information is protected by the Federal Confidentiality of Alcohol and Drug Abuse Patient Records regulations: The Federal rules restrict any use of the information to criminally investigate or prosecute any alcohol or drug abuse patient.[facility] the event this information is protected by the Federal Confidentiality of Alcohol and Drug Abuse Patient Records regulations: The Federal rules restrict any use of the information to criminally investigate or prosecute any alcohol or drug abuse patient.[facility] the event this information is protected by the Federal Confidentiality of Alcohol and Drug Abuse Patient Records regulations: The Federal rules restrict any use of the information to criminally investigate or prosecute any alcohol or drug abuse patient.[facility] the event this information is protected by the Federal Confidentiality of Alcohol and Drug Abuse Patient Records regulations: The Federal rules restrict any use of the information to criminally investigate or prosecute any alcohol or drug abuse patient.[facility] the event this information is protected by the Federal Confidentiality of Alcohol and Drug Abuse Patient Records regulations: The Federal rules restrict any use of the information to criminally investigate or prosecute any alcohol or drug abuse patient.[facility] the event this information is protected by the Federal Confidentiality of Alcohol and Drug Abuse Patient Records regulations: The Federal rules restrict any use of the information to criminally investigate or prosecute any alcohol or drug abuse patient.[facility] the event this information is protected by the Federal Confidentiality of Alcohol and Drug Abuse Patient Records regulations: The Federal rules restrict any use of the information to criminally investigate or prosecute any alcohol or drug abuse patient.[facility]In the event this information is protected by the Federal Confidentiality of Alcohol and Drug Abuse Patient Records regulations: The Federal rules restrict any use of the information to criminally investigate or prosecute any alcohol or drug abuse patient.[facility] the event this information is protected by the Federal Confidentiality of Alcohol and Drug Abuse Patient Records regulations: The Federal rules restrict any use of the information to criminally investigate or prosecute any alcohol or drug abuse patient.[facility] the event this information is protected by the Federal Confidentiality of Alcohol and Drug Abuse Patient Records regulations: The Federal rules restrict any use of the information to criminally investigate or prosecute any alcohol or drug abuse patient.[facility]In the event this information is protected by the Federal Confidentiality of Alcohol and Drug Abuse Patient Records regulations: The Federal rules restrict any use of the information to criminally investigate or prosecute any alcohol or drug abuse patient.[facility]In the event this information is protected by the Federal Confidentiality of Alcohol and Drug Abuse Patient Records regulations: The Federal rules restrict any use of the information to criminally investigate or prosecute any alcohol or drug abuse patient.[facility]In the event this information is protected by the Federal Confidentiality of Alcohol and Drug Abuse Patient Records regulations: The Federal rules restrict any use of the information to criminally investigate or prosecute any alcohol or drug abuse patient.[facility]In the event this information is protected by the Federal Confidentiality of Alcohol and Drug Abuse Patient Records regulations: The Federal rules restrict any use of the information to criminally investigate or prosecute any alcohol or drug abuse patient.[facility]In the event this information is protected by the Federal Confidentiality of Alcohol and Drug Abuse Patient Records regulations: The Federal rules restrict any use of the information to criminally investigate or prosecute any alcohol or drug abuse patient.[facility]In the event this information is protected by the Federal Confidentiality of Alcohol and Drug Abuse Patient Records regulations: The Federal rules restrict any use of the information to criminally investigate or prosecute any alcohol or drug abuse patient.[facility]In the event this information is protected by the Federal Confidentiality of Alcohol and Drug Abuse Patient Records regulations: The Federal rules restrict any use of the information to criminally investigate or prosecute any alcohol or drug abuse patient.[facility]In the event this information is protected by the Federal Confidentiality of Alcohol and Drug Abuse Patient Records regulations: The Federal rules restrict any use of the information to criminally investigate or prosecute any alcohol or drug abuse patient.[facility]In the event this information is protected by the Federal Confidentiality of Alcohol and Drug Abuse Patient Records regulations: The Federal rules restrict any use of the information to criminally investigate or prosecute any alcohol or drug abuse patient.[facility]In the event this information is protected by the Federal Confidentiality of Alcohol and Drug Abuse Patient Records regulations: The Federal rules restrict any use of the information to criminally investigate or prosecute any alcohol or drug abuse patient.[facility]In the event this information is protected by the Federal Confidentiality of Alcohol and Drug Abuse Patient Records regulations: The Federal rules restrict any use of the information to criminally investigate or prosecute any alcohol or drug abuse patient.[facility]In the event this information is protected by the Federal Confidentiality of Alcohol and Drug Abuse Patient Records regulations: The Federal rules restrict any use of the information to criminally investigate or prosecute any alcohol or drug abuse patient.[facility]In the event this information is protected by the Federal Confidentiality of Alcohol and Drug Abuse Patient Records regulations: The Federal rules restrict any use of the information to criminally investigate or prosecute any alcohol or drug abuse patient.[facility]In the event this information is protected by the Federal Confidentiality of Alcohol and Drug Abuse Patient Records regulations: The Federal rules restrict any use of the information to criminally investigate or prosecute any alcohol or drug abuse patient.[facility]In the event this information is protected by the Federal Confidentiality of Alcohol and Drug Abuse Patient Records regulations: The Federal rules restrict any use of the information to criminally investigate or prosecute any alcohol or drug abuse patient.[facility]In the event this information is protected by the Federal Confidentiality of Alcohol and Drug Abuse Patient Records regulations: The Federal rules restrict any use of the information to criminally investigate or prosecute any alcohol or drug abuse patient.[facility] Reason for Visit (unrecogniz ed section and content) Reason Comments Physical Reason Comments New Patient Ingrown Nail Specialty Diagnoses / Procedures Referred By Contac t Referred To Contact Podiatry Diagnoses Ingrown toenail Procedures CONSULT TO PODIATRY OFFICE/OUTPATIENT NEW HIGH MDM 60-74 MINUTES Marcia Perry, SALES OUTFITTER.FIELD SERVICE POULTRY TECHNICIAN [address] [place] [address] Referral ID Status Reason Start Date Expiration Date V isits Requested Visits Authorized [id number] Closed PCP Requested Referral 03/15/2022 03/15/2023 1 1 Reason Comments Abdominal Pain X 2 years Reason Comments Radiology NM Specialty Diagnoses / Procedures Referred By Contac t Referred To Contact MOLECULAR & FUNCTIONAL IMAGING Diagnoses Calculus of gallbladder without cholecystitis without obstruction Nausea Procedures NM HEPATOBILIARY W EF AND/OR RX HEPATOBIL [facility] GB W/PHARMA INTERVENJ Marcia Perry, SALES OUTFITTER.FIELD SERVICE POULTRY TECHNICIAN [address] [place] [address] Molecular & Functional Imaging [address] [place] [address] Referral ID Status Reason Start Date Expiration Date V isits Requested Visits Authorized [id number] Closed Auto-Generate d Referral 05/10/2022 06/09/2023 1 1 Reason Comments Nail Check Left pointer finger, brown coloring under nail Reason Onset Date Comments Refill Request 06/12/2022 Reason Onset Date Comments Refill Request 06/19/2022 Reason Onset Date Comments Refill Request 06/20/2022 Reason Comments Release Of Medical Records Reason Comments Results Consult Reason Comments Ear Pain Right x 1 week Nausea Reason Comments Abdominal Pain Reason Comments Results Reason Onset Date Comments Refill Request 02/20/2023 Reason Comments Yearly Exam Reason Onset Date Comments Refill Request 07/27/2023 Care Teams (unrecognized sec tion and content) Brand Manager Relationship Specialty Start Date End Date Chetan Lamb DO [address] [place] [address] PCP - General Family Practice 12/06/20 Brand Manager Relationship Specialty Start Date End Date Chetan Lamb DO [address] [place] [address] PCP - General Family Practice 12/06/20 Brand Manager Relationship Specialty Start Date End Date Chetan Lamb, DO [address] [place] [address] PCP - General Family Practice 12/06/20 Brand Manager Relationship Specialty Start Date End Date Chetan Lamb, DO [address] [place] [address] PCP - General Family Practice 12/06/20 Brand Manager Relationship Specialty Start Date End Date Chetan Lamb, DO [address] [place] [address] PCP - General Family Practice 12/06/20 Brand Manager Relationship Specialty Start Date End Date Chetan Lamb, DO [address] [place] [address] PCP - General Family Medicine 12/06/20 Brand Manager Relationship Specialty Start Date End Date Chetan Lamb, DO [address] [place] [address] PCP - General Family Medicine 12/06/20 Brand Manager Relationship Specialty Start Date End Date Chetan Lamb, DO [address] [place] [address] PCP - General Family Medicine 12/06/20 Brand Manager Relationship Specialty Start Date End Date Chetan Lamb, DO [address] [place] [address] PCP - General Family Medicine 12/06/20 Brand Manager Relationship Specialty Start Date End Date Chetan Lamb, DO [address] [place] [address] PCP - General Family Medicine 12/06/20 Brand Manager Relationship Specialty Start Date End Date Chetan Lamb, DO [address] [place] [address] PCP - General Family Medicine 12/06/20 Brand Manager Relationship Specialty Start Date End Date Chetan Lamb DO [address] [facility] [address] PCP - General Family Medicine 12/06/20 Brand Manager Relationship Specialty Start Date End Date Chetan Lamb DO [address] [place] [address] PCP - General Family Medicine 12/06/20 Brand Manager Relationship Specialty Start Date End Date Chetan Lamb DO [address] [place] [address] PCP - General Family Medicine 12/06/20 Brand Manager Relationship Specialty Start Date End Date Chetan Lamb DO [address] [place] [address] PCP - General Family Medicine 12/06/20 Brand Manager Relationship Specialty Start Date End Date Chetan Lamb DO [address] [place] [address] PCP - General Family Medicine 12/06/20 Brand Manager Relationship Specialty Start Date End Date Chetan Lamb DO [address] [facility] [place] [address] PCP - General Family Medicine 12/06/20 Brand Manager Relationship Specialty Start Date End Date Chetan Lamb DO [address] [facility] [place] [address] PCP - General Family Medicine 12/06/20 Brand Manager Relationship Specialty Start Date End Date Chetan Lamb DO [address] [place] [address] PCP - General Family Medicine 12/06/20 Brand Manager Relationship Specialty Start Date End Date Chetan Lamb DO Jair [address] [place] [address] PCP - General Family Medicine 12/06/20 INFORMATION SOURCE (unrecogn ized section and content) FOR RECORDS PERTAINING TO PATIENTS WHO ARE OR HAVE BEEN ENROLLED IN A CHEMICAL DEPENDENCY/SUBSTANCEABUSE PROGRAM, SOME INFORMATION MAY BE OMITTED. This clinical summary was aggregated from multiple sources. Caution should be exercised in using it in the provision of clinical care. This summary normalizes information from multiple sources, and as a consequence, information in this document may materially change the coding, format and clinical context of patient data. In addition, data may be omitted in some cases. CLINICAL DECISIONS SHOULD BE BASED ON THE PRIMARY CLINICAL RECORDS. [facility]. provides no warranty or guarantee of the accuracy or completeness of information in this document.
[2023-09-11 13:47] LABS: Internal QC Validated? YES +Cl - CLEAR BKGD; Pregnancy, Serum, hCG Quali. NEGATIVE Negative; Record Kit Lot#, Serum Preg. HCG0000718086
[2023-09-11 13:57] LABS: Bacteria 0 SEEN /hpf (None Seen); Mucous, Urine 0 SEEN /hpf (<or=2+); Red Blood Cells-Urine 0 SEEN /hpf (0-5); Squamous Epithelial Cells - UA 0 SEEN /hpf (5-10); White Blood Cells 0 SEEN /hpf (0-5)
[2023-09-11 13:59] LABS: Color, Urine Yellow (Yellow); Glucose, Dipstick Normal (Normal); Ketone-Dipstick Negative (Negative); Leukocyte Esterase-Dipstick Negative /ul (Negative); Nitrite-Dipstick Negative (Negative); Occult Blood-Urine Negative /ul (Negative); Protein-Dipstick Negative (Negative); Specific Gravity, Urine 1.015 (1.002-1.030); Urine Bilirubin Dipstick Negative (Negative); Urine Clarity Clear (Clear); Urine Urobilinogen 1 mg/dl (Normal)
[2023-09-11 14:57] VITALS: BP 124/68; PULSE 71; RESP 16; O2SAT 98
== END 2023-09-11 14:59 | disposition home or self-care (01) ==
PROVIDERS: Emergency Provider Emergency Medicine; PCP Student in an Organized Health Care Education/Training Program; Referring Provider Emergency Medicine; Visit Provider Emergency Medicine
DX: N83.201 Unspecified ovarian cyst, right side (principal); R10.9 Unspecified abdominal pain
CPT/HCPCS: 74176; 80048; 81001; 84703; 85025; 96361; 96374; 99284; J7030; A4216; J2405

== ENCOUNTER → 2023-12-03 | Outpatient (CLI) | payer OTHER, SELFPAY ==
[2023-12-03 17:25] LABS: Hemoglobin A1c 5.4 % (3.8-5.6)
[2023-12-03 17:36] LABS: Vitamin B12 296 pg/mL (211-911)
[2023-12-03 17:50] LABS: ALB/GLOB Ratio 0.7 RATIO (0.9-2.4); AST(SGOT) 73 U/L (15-37); Alanine Aminotransfer ALT/SGPT 75 U/L (13-56); Albumin, Serum 3.3 g/dL (3.2-5.0); Alkaline Phosphatase 89 U/L (45-117); Amylase 53 U/L (25-115); Anion Gap 7 (5-15); BUN 11 mg/dL (7-18); BUN/Creat Ratio 14.5 RATIO (10-20); Calcium,Total 9.1 mg/dL (8.5-10.1); Chloride 107 mmol/L (98-107); Creatinine, Serum 0.76 mg/dL (0.55-1.02); EST Glomerular Filtration Rate 102 mL/min (>60); Est Glom Filt Rate - Afr Amer 123 mL/min (>60); Globulin 4.7 g/dL (2.2-4.2); Glucose 86 mg/dL (74-106); Potassium 3.8 mmol/L (3.5-5.1); Sodium Level 139 mmol/L (136-145); Thyroid Stim Hormone (TSH) 2.56 uIU/mL (0.358-3.74)
[2023-12-04 13:30] LABS: Lipase 35 U/L (13-75)
[2023-12-05 14:09] LABS: Anti-Centromere B Ab <0.2 AI (0.0-0.9); Anti-Chromatin <0.2 AI (0.0-0.9); Anti-Jo <0.2 AI (0.0-0.9); Anti-Scleroderma-70 AB <0.2 AI (0.0-0.9); Anti-dsDNA Ab <1 IU/mL (0-9); RNP Ab <0.2 AI (0.0-0.9); SJOGREN'S Anti-SS-A test < 0.2 AI (0.0-0.9); SJOGREN'S Anti-SS-B test < 0.2 AI (0.0-0.9); Smith Ab <0.2 AI (0.0-0.9)
[2023-12-11 08:06] LABS: Immunoglobulin A 324 mg/dL (87-352); Immunoglobulin E 15 IU/mL (6-495); Immunoglobulin G 1061 mg/dL (586-1602); Immunoglobulin M 99 mg/dL (26-217)
== END | disposition home or self-care (01) ==
LOC: LAB 15:20
PROVIDERS: PCP Student in an Organized Health Care Education/Training Program; Visit Provider Internal Medicine Gastroenterology
DX: R10.11 Right upper quadrant pain (principal)
CPT/HCPCS: 36415; 80053; 82150; 82607; 82746; 82784; 82785; 83036; 83690; 84443; 86225; 86235